=== PATIENT | male | born 1945 | race Caucasian/White ===

== ENCOUNTER 2016-11-10 16:21 | Inpatient (IN) | payer MEDICARE ==
[~2016-11-10] VITALS: Ht 175.3 cm; Wt 134.0 kg
[~2016-11-10 16:21] MED LIST: ATEN50TA7 PO; CITA20TA PO; LOP600 PO; LOVA40TA PO; NIAC500T8 PO; NIAC500T82 PO; TAMS0.4C29 PO
[2016-11-10 16:24] VITALS: BP 125/69; PULSE 97; RESP 13; O2SAT 99
--- NOTE | 2016-11-10 16:31 | ED.REPORT ---
HPI-Extremity Problem Lower Date of Service Nov 10, 2016 ED Provider: Sami Galeas MD A 70 year old male with a history of LLE DVT (secondary to a trauma), hypertension, diabetes mellitus, and kidney disease presents to the ED via EMS from [facility] ED with right lower extremity edema that first began 4 days ago. [facility] ED ultrasound revealed a right popliteal saphenous DVT. He was treated with Heparin en route. The patient endorses recent dyspnea but is often short of breath following exertion. He denies any chest pain or hemoptysis. Patient denies any recent travel or surgeries. Current medication list includes Levothyroxine, statin and insulin. The patient has also been taking an antibiotic for the past week for suspected lower extremity cellulitis. He was previously on Coumadin but has not been anticoagulated for the past few years. Nursing Notes Stated Complaint: RIGHT LEG SWELLING Chief Complaint: General Complaint Nursing Notes Reviewed: Yes Allergies: Coded Allergies: clindamycin (Verified Allergy, Intermediate, 11/10/16) sodium thiosulfate (Verified Allergy, Intermediate, 11/10/16) Scheduled Atenolol-Expunged Drug, Do Not Renew! (Atenolol-Expunged Drug, Do Not Renew!) 50 Mg Tablet 50 MG PO DAILY Citalopram-Expunged Drug, Do Not Renew! (Citalopram-Expunged Drug, Do Not Renew! ) 20 Mg Tablet 40 MG PO DAILY Gemfibrozil-Expunged Drug, Do Not Renew! (Lopid-Expunged Drug, Do Not Renew!) 600 Mg Tablet 600 MG PO BID Lovastatin-Expunged Drug, Do Not Renew! (Lovastatin-Expunged Drug, Do Not Renew! ) 40 Mg Tablet 40 MG PO DAILY NIACIN-Expunged Drug, Do Not Renew! (NIACIN-Expunged Drug, Do Not Renew!) 500 Mg Tablet 500 MG PO HS 3 500 MG TABS Q PM Niacin-Expunged Drug, Do Not Renew! (Niacin-Expunged Drug, Do Not Renew!) 500 Mg Tablet.sa 500 MG PO AM 2 500 MG TABS Q AM Tamsulosin-Expunged Drug, Do Not Renew! (Tamsulosin-Expunged Drug, Do Not Renew! ) 0.4 Mg Cap.sr.24h 0.4 MG PO HS General Time Seen by MD: 16:28 Chief Complaint Other (Right Lower Extremity Edema) Hx Obtained From: Patient Arrived By: Ambulance Onset Occurred: 4 days ago Symptom Duration: Since onset Location: : Leg right Quality: Fullness Severity: Current: Mild Severity: Maximum: Moderate Associated with: Reports: Dyspnea, Swelling, Denies: Chest pain Pertinent Negative: Pt denies other symptoms Recent Healthcare: No recent hospitalization, Recent doctor visit Past Medical History Past Medical History 1. LLE DVT 2. Hypertension 3. Diabetes mellitus 4. Kidney Disease Past Surgical History None reported. Smoking History Never Smoker Social History Other Social History: Good social support, , Local resident Ambulatory Status Independent Review of Systems Musculoskeletal: Reports: Extremity swelling (R leg swelling) Complete sys rev & neg: except as marked. Respiratory: Reports: Dyspnea on exertion, Shortness of breath, Denies: Hemoptysis Cardiovascular: Reports: Edema (Bilateral LE), Denies: Chest pain Physical Exam Initial Vital Signs Vital Signs (First) Date Time Temp Pulse Resp B/P Pulse Ox O2 Delivery O2 Flow Rate FiO2 11/10/16 16:24 36.8 97 13 125/69 99 Room Air Initial VS: Reviewed Head / Eyes: Atraumatic, Normocephalic, PERRL Neck: Supple, Non-tender, Full range of motion Upper Extremities: Vascular intact, Neuro intact, No swelling, No tenderness Neurologic: Alert, Oriented, Nonfocal Psychiatric: Mood/affect normal, Behavior normal, Normal thought content Lower Extremity / Pelvis / MS: Atraumatic, Neurologic intact, Vascular intact Right Leg / Calf: Positive: Erythema present Left Leg / Calf: Positive: Erythema present Ankle / Foot: Atraumatic, Neurologic intact, Vascular intact Right Ankle: Positive: Swelling present... Left Ankle: Positive: Swelling present... General/Constitutional: Awake, Alert, No acute distress, Well appearing, Well developed Respiratory / Chest: Atraumatic, Breath sounds NL, Breath sounds = bilat, No respiratory distress Cardiovascular: Heart rate NL, Regular rhythm, Heart sounds NL, No murmurs Lower Ext Edema: Positive: Bilateral 2+ Skin: Atraumatic, Color NL, Warm, Dry Interpretation & Diagnostics LABS - [facility] Chemistry Na - 135 K - 5.2 Cl - 106 CO2 - 19 BUN - 36 Creat - 2.40 Estimated GFR - 28.5 BUN/Creat Ration - 15.0 Glucose - 236 Ca - 8.7 Total Bilirubin - 0.5 AST - 18 ALT - 24 Alk Phos - 114 B-Natriuretic Peptide - 38.3 Total protein - 6.8 Albumin - 3.7 Globulin - 3.1 Albumin/Globulin Ration - 1.2 Coag PT - 13.0 INR - 1.2 Hematology WBC - 10.2 RBC - 3.53 Hgb - 12.2 Hct - 35.6 MVC - 100.8 MCH - 34.7 MCHC - 34.4 RDW - 13.[address] - 232 Neutrophils - 90.2 Lymphocytes - 2.2 Monocytes - 6.7 Eosinophils - 0.6 Basophils - 0.3 Absolute Neutrophils - 9200 Lab Results Interpretation Result Diagram: 11/10/16 5565 ECG Interpretation ECG Interpretation: Sinus rhythm Rate 98 bpm Q waves in 3 AVR V1 - V2 No previous for comparison Time: 16:43 Interpreted by: ED physician X-Ray Chest Interpretation Chest Xray Interpretation: IMPRESSION: Normal for age, source of current symptoms is not seen. Dictated by: Alber Roberto M.D. on 11/10/2016 at 18:25 Interpretation / Wet Read by: Interpret - Radiologist Re-Eval/Medical Decision Med Decision/Clinical Course 70-year-old male history of DVT presenting with right lower extremity DVT diagnosed at outside hospital earlier today from saphenous to popliteal. Patient started on heparin drip. Interventional cardiology Dr. Garcia consulted who will perform thrombolysis in the morning and he recommends nothing by mouth at midnight, echocardiogram, V/Q scan given patient's renal function. He does have some dyspnea which is chronic and is slightly tachycardic therefore cannot rule out PE though we are treating with heparin drip pending VQ scan and echocardiogram is pending. Labs were performed several hours ago at outside hospital which have been transcribed into the note as above therefore will not repeat at this time. Admitted to hospital. Re-Evaluation/Progress #1: Time of Eval: 16:42 Patient Status: Condition improved Re-Evaluation/Progress Note: Patient is informed of the plan to admit to the hospital. IV heparin drip started. Re-Evaluation/Progress #2: Time of Eval: 17:14 Patient Status: Condition improved Re-Evaluation/Progress Note: All questions about the intended treatment plan are addressed. Patient is comfortable with and understands the treatment plan to meet with Dr. Nascimento Consultation #1: Referral / Consult Name: Joaquin Hinkle MD Consulted With: Surgeon Call Returned at: 16:48 Skidder Loader: Will see patient, Agrees with eval, Agrees with plan Note: Discussed patient condition. Will perform Thrombolysis in the morning. Recommends IV heparin, echocardiogram and VQ scan. Agrees to consult on patient. Consultation #2: Referral / Consult Name: Dipak Jay MD Consulted With: Hospitalist Call Returned at: 17:15 Skidder Loader: Will see patient, Agrees with eval, Agrees with plan, Accepts admit Note: Discussed patient condition. Will accept patient. Counseled Regarding: Diagnosis, Lab results, Need for admission Discharge & Departure Impression: Primary Impression: Deep vein thrombophlebitis of right leg Disposition: ADMITTED TO HOSPITAL Discharge Condition All VS Reviewed: Yes Condition: Stable Referrals: Willem Franklin MD (PCP) Crit Care Except Billable Proc Time Spent: 30-74 minutes (35 minutes) Services Performed: Patient management by me, Time spent at bedside, Reviewing test results, Reviewing imaging, Discussing patient care, Documentation in record, Time with fam/surrogate Scribe Attestation Portions of this note were transcribed by Cj Lozano. I, Dr. Galeas personally performed the history, physical exam and medical decision-making; I reviewed and confirmed the accuracy of the information in the transcribed note. copies to: Willem Franklin MD, Ben M MD Nov 10, 2016 16:31 CJ LOZANO Nov 10, 2016 16:40
[2016-11-10 16:32] VITALS: BP 125/69; PULSE 97; RESP 13; O2SAT 99
[2016-11-10] MEDS ORDERED: Alum-Mag Hydrox-Simeth 30 mL Suspension PO PRN ×2 (17:20)
[2016-11-10] MEDS ORDERED: Ondansetron 2 mg/mL 2 mL Inj IVPUSH PRN (17:20)
[2016-11-10] MEDS ORDERED: Polyethylene Glycol (PEG) 17 Gm Powder PO PRN (17:20)
[2016-11-10 17:24] VITALS: BP 122/59; PULSE 98; RESP 17; O2SAT 99
[2016-11-10] MEDS ORDERED: Heparin 5,000 Unit/mL Inj IVPUSH PRN (17:30)
[2016-11-10] MEDS ORDERED: Heparin 25K Unit/500mL 0.45 NS 25,000 UNIT in IV Premix 1 EACH IV SCH (17:30)
[2016-11-10 18:09] LABS: BASOPHILS % (AUTO) 0.1 % (0-3); MONOCYTES % (AUTO) 8.8 % (4-12); Mean Corpuscular Hemoglobin 33.3 pg (27.0-35.0); Mean Corpuscular Volume 103.5 fL (81-100); Platelet Count 275 bil/L (150-400)
[2016-11-10] MEDS ORDERED: Glucose 40% Oral Gel 15 Gm Tube PO PRN (18:20)
--- NOTE | 2016-11-10 18:27 | DRSVH ---
PROCEDURE: X-RAY CHEST, TWO VIEWS ([id number]) INDICATIONS: dyspnea pending vq scan TECHNIQUE: 2 views of the chest were acquired. COMPARISON: None. FINDINGS: Surgical changes and devices: None. Lungs and pleura: No pleural effusions or pneumothorax. Lungs are clear. Mediastinum: Mediastinal contours are normal. Heart size is normal. Bones and chest wall: No suspicious bony abnormalities. Soft tissues appear unremarkable. IMPRESSION: Normal for age, source of current symptoms is not seen. Dictated by: Alber Roberto M.D. on 11/10/2016 at 18:25 Approved by: Alber Roberto M.D. on 11/10/2016 at 18:25
--- NOTE | 2016-11-10 18:27 | PCM.HPMED ---
Subjective Date of Service Nov 10, 2016 Primary Provider: Admitting Physician: Dipak Jay MD Primary Care Physician: Willem Franklin MD Attending Physician: Dipak Jay MD Chief Complaint: DVT History of Present Illness: Patient is a 70 yo male with pmh of DVTs, PE (s/p IVC filter), Cranial hematoma , GI bleeds who is coming in with right leg swelling and erythema. Patient said he had his first DVT in 1986 when he had a left leg injury and had a cast put in. He had PEs after that episode and was on warfarin for some time. He had recurrent GI bleeds and a cranial hematoma (requiring surgery), resulting in discontinuation of warfarin, and IVC filter was placed. The right leg got swollen and red couple of days ago. He added that he does trip a lot due to instability of his gait. Denies any chest pain, shortness of breath at this time. He said he was recently admitted at another hospital on Monday for hypotension recently and his bp medications were dc'd Allergies Coded Allergies: clindamycin (Verified Allergy, Intermediate, 11/10/16) sodium thiosulfate (Verified Allergy, Intermediate, 11/10/16) Constitutional: No: Chills, Fever, Malaise, Other, Sweats, Weakness Eyes: Denies: Blurred Vision, Conjunctive Inflammation, Double Vision, Eyelid Inflammation, Other, Pain, Pigmentosa, Redness, Retinitis, Vision Changes ENT: Denies: Dental Problems, Dysphagia, Ear Discharge, Ear Pain, Hoarseness, Membranes Dry, Nasal Congestion, Nose Discharge, Nose Pain, Other, Throat Pain, Tinnitus, Ulcers/Sores in Mouth Cardiovascular: Denies: Chest Pain, Edema, Lt Headedness, Orthopnea, Other, Palpitations, Paroxysmal Noc. Dyspnea Respiratory: Denies: Cough, Hemoptysis, Other, Pleuritic Chest Pain, SOB with Exertion, Shortness of Breath, Sputum, Wheezing Gastrointestinal: Denies: Abdominal Pain, Change in Appetite, Constipation, Diarrhea, Heartburn, Hematochezia, Melena, Nausea, Other, Use of Laxatives, Vomiting Genitourinary: Denies: Anuria, Change in Frequency, Dysuria, Hematuria, Incontinence, Nocturia, Other, Retention Musculoskeletal: Reports: Other (as perHPI) Skin: Reports: Other (Erythema around LLE below the knee) Neurological: Denies: Change in Speech, Confusion, Dizziness, Dyskinesia, Hyper Reflexia, Incoordination, Numbness, Other, Seizures, Somnolence, Tremors, Weakness Psychologic: Denies: Agitation, Disorientation, Excitation, Giddiness, Hostile , Insomnia, Instability, Stefany, Nervousness, Night Terrors, Other, Perseveration , Phobia, Sexual Disturbances Endocrine: Denies: Change in Appitite, Diaphoresis, Intolerent to Heat/Cold, Polydipsea, Polyuria PMH DVT PE Cranial hemorrhage (requiring evacuation) DM HTN CKD Surgical History s/p IVC filter Family History non contributory Social History Hx Alcohol Use: No Hx Substance Use: No Hx Tobacco Use: No Smoking Status: Never Smoker Exam Vital Signs Vital Sign - Last Date Time Temp Pulse Resp B/P Pulse Ox O2 Delivery O2 Flow Rate FiO2 11/10/16 17:24 36.7 98 17 122/59 99 Room Air Exam Head / Eyes: Atraumatic, Normocephalic, PERRL Neck: Supple, Non-tender, Full range of motion Upper Extremities: Vascular intact, Neuro intact, No swelling, No tenderness Neurologic: Alert, Oriented, Nonfocal Psychiatric: Mood/affect normal, Behavior normal, Normal thought content Lower Extremity / Pelvis / MS: Atraumatic, Neurologic intact, Vascular intact Right Leg / Calf: Positive: Erythema present Left Leg / Calf: Positive: Erythema present Ankle / Foot: Atraumatic, Neurologic intact, Vascular intact Right Ankle: Positive: Swelling present... Left Ankle: Positive: Swelling present... General/Constitutional: Awake, Alert, No acute distress, Well appearing, Well developed Respiratory / Chest: Atraumatic, Breath sounds NL, Breath sounds = bilat, No respiratory distress Cardiovascular: Heart rate NL, Regular rhythm, Heart sounds NL, No murmurs Lower Ext Edema: Positive: Bilateral 2+ Skin: Atraumatic, Color NL, Warm, Dry Lab and Diagnostics Labs Chemistry Na - 135 K - 5.2 Cl - 106 CO2 - 19 BUN - 36 Creat - 2.40 Estimated GFR - 28.5 BUN/Creat Ration - 15.0 Glucose - 236 Ca - 8.7 Total Bilirubin - 0.5 AST - 18 ALT - 24 Alk Phos - 114 B-Natriuretic Peptide - 38.3 Total protein - 6.8 Albumin - 3.7 Globulin - 3.1 Albumin/Globulin Ration - 1.2 Coag PT - 13.0 INR - 1.2 Result Diagram: 11/10/16 8553 Assessment & Plan Patient is a 70 yo male with pmh of DVTs, PE (s/p IVC filter), Cranial hematoma , GI bleeds who is coming in with right leg swelling and erythema. > DVT - h/o of DVTs, warfarin stopped before due to bleeds, s/p IVC filter - US positive for RLE DVT plan: - started on heparin drip - cardio consulted from ER, NPO after midnight for venous cath > Cellulitis - erythema with swelling, right lower leg - h/o DM plan: - continue bactrim > CKD - baseline ~1.90 - likely 2/2 chronic diabetes plan: -monitor Cr function - avoid nephrotoxins > DM - chronic plan: - on sliding scale - will monitor glucose > HTN - has history of it, however most of the bp meds dc'd due to recent hypotension plan: -monitor bp inpatient - continue atenolol > GI bleeds - h/o of GI bleeds plan: -watch H&H - on famotidine for prophylaxis > Depression/Anxiety - chronic plan - on citalopram > BPH - chronic plan: - on tamsolusin Dispo: I suspect patient will stay > 2 days inpatient due to severity of the disease and complexity that can arise from it. Pain Evaluation: Adequate Pain Control VTE Prophylaxis: Other (on heparin drip ) Time spent 45 mins Dipak Jay MD Nov 10, 2016 18:27
[2016-11-10 18:33] VITALS: BP 121/77; PULSE 98; RESP 22; O2SAT 99
[2016-11-10 18:40] VITALS: PULSE 96
[2016-11-10] MEDS ORDERED: Trimethoprim-Sulfa 160 mg-800 mg Tablet PO SCH (20:30)
[2016-11-10] MEDS: Insulin LISPRO 300 Unit/3 mL Inj SUBQ SCH (22:00)
[2016-11-10 22:29] VITALS: BP 118/73; PULSE 95; RESP 20; O2SAT 98
[2016-11-10] MEDS ORDERED: 0.9% Sodium Chloride 100 ML ONE (23:34)
[2016-11-10] MEDS ORDERED: SULF1TAB35 PO (23:45)
[2016-11-10] MEDS ORDERED: CITA20TA PO (23:45)
[2016-11-10] MEDS ORDERED: GLIP5TAB26 PO (23:45)
[2016-11-11] VITALS (10 sets, daily range): BP systolic 116–131; BP diastolic 71–78; PULSE 80–89; RESP 12–20; O2SAT 96–100
[2016-11-11] MEDS: Trimethoprim-Sulfa 160 mg-800 mg Tablet PO SCH ×3 (00:35→21:09)
[2016-11-11] MEDS ORDERED: LEVO50TA6 PO (00:47)
[2016-11-11] MEDS ORDERED: LOVA40TA PO (00:47)
[2016-11-11] MEDS ORDERED: HYDR-4003 PO (00:47)
[2016-11-11] MEDS ORDERED: INSU100V7 SUBQ ×2 (00:47)
[2016-11-11] MEDS ORDERED: NIAC500T21 PO ×2 (00:47)
[2016-11-11] MEDS: Famotidine Inj 20 MG in IV Premix 1 EACH IV SCH ×2 (01:08→21:09)
[2016-11-11] MEDS ORDERED: ATEN50TA PO (04:09)
[2016-11-11] MEDS ORDERED: TAMS0.4C98 PO (04:09)
[2016-11-11 06:31] LABS: BASOPHILS % (AUTO) 0.4 % (0-3); EOSINOPHILS % (AUTO) 2.7 % (0-5); MONOCYTES % (AUTO) 11.3 % (4-12); Mean Corpuscular Hemoglobin 33.3 pg (27.0-35.0); Mean Corpuscular Volume 102.8 fL (81-100); NEUTROPHILS % (AUTO) 76.8 % (40-74); Platelet Count 253 bil/L (150-400)
[2016-11-11 07:10] LABS: INR 1.02 ratio
[2016-11-11] MEDS ORDERED: Heparin 1,000 Units/500 mL NS Premix IV ONE (07:53)
[2016-11-11] MEDS ORDERED: Heparin 1,000 Unit/mL 10 mL Inj ONE (07:53)
[2016-11-11] MEDS ORDERED: Heparin 10,000 Unit/1,000 mL NS Premix IV ONE (07:58)
[2016-11-11] MEDS: Insulin LISPRO 300 Unit/3 mL Inj SUBQ SCH ×4 (08:00→21:29)
[2016-11-11 08:30] LABS: ERYTHROCYTE SEDIMENTATION RATE 56 mm/hr (0-30)
[2016-11-11] MEDS ORDERED: Niacin SR 500 mg ER12 Tablet PO SCH ×2 (08:30)
[2016-11-11] MEDS ORDERED: Lactated Ringer's 500 ML IV PRN (09:25)
[2016-11-11] MEDS ORDERED: Lactated Ringer's 1,000 ML IV SCH (09:25)
[2016-11-11] MEDS ORDERED: fentaNYL-PF 50 mCg/mL 2 mL Inj IVPUSH PRN (09:25)
[2016-11-11] MEDS ORDERED: Labetalol 5 mg/mL 4 mL Inj IV PRN (09:25)
[2016-11-11] MEDS ORDERED: Ondansetron 2 mg/mL 2 mL Inj IVPUSH PRN (09:25)
[2016-11-11] MEDS ORDERED: HYDROmorphone 1 mg/mL Inj IVPUSH PRN (09:25)
[2016-11-11] MEDS ORDERED: hydrALAZINE 20 mg/mL Inj IVPUSH PRN (09:25)
[2016-11-11] MEDS ORDERED: Atropine 0.4 mg/mL Inj IVPUSH PRN (09:25)
[2016-11-11] MEDS ORDERED: MetoCLOpramide 5 mg/mL 2 mL Inj IVPUSH PRN (09:25)
[2016-11-11] MEDS ORDERED: Dexamethasone 4 mg/mL Inj IVPUSH PRN (09:25)
[2016-11-11] MEDS ORDERED: Phenylephrine 10,000 mCg/mL Inj IVPUSH PRN (09:25)
[2016-11-11] MEDS ORDERED: EPHEDrine Sulfate 50 mg/mL Inj IVPUSH PRN (09:25)
--- NOTE | 2016-11-11 09:25 | PCM.HPANE ---
Patient Data Date of Service: Nov 11, 2016 Surgeon Admitting Provider:Dipak Jay MD Attending Provider:Dipak Jay MD Primary Care Physician:Willem Franklin MD Other Provider: Reason for Visit DVT Ht/WT & BMI Height (Feet): 5 Height (Inches): 9.00 Weight (Kilograms): 126.900 Body Mass Index 41.44 Allergies Coded Allergies: clindamycin (Verified Allergy, Intermediate, 11/10/16) sodium thiosulfate (Verified Allergy, Intermediate, 11/10/16) Past Anesthesia History Anesthesia History: Denies:: Abnormal Airway, Difficult Intubation, Fam Anesthesia Reaction, Fam Malignant Hypertherm, Malignant Hyperthermia Diabetes History Hx Diabetes?: Yes Current Bedside Blood Glucose: 73 MRSA MRSA: No Medications Hypertension Medication: Yes Home Meds Incl Beta Shelley: Yes Date Beta Shelley Taken: Nov 10, 2016 Reported Medications Tamsulosin (Flomax)0.4 Mg Capsule0.4 Mg PO HS Ref 0 11/11/16 Atenolol 50 Mg [id number] Mg PO DAILY #30 TABLET Ref 0 11/11/16 Niacinamide (Niacin)500 Mg Tablet1,500 Mg PO HS 11/11/16 Niacinamide (Niacin)500 Mg Tablet1,000 Mg PO MORNING 11/11/16 Levothyroxine 50 Mcg [id number] Mcg PO DAILY Ref 0 11/11/16 Insulin Glargine (Lantus U100 Insulin Vial)100 Unit/Ml Vial35 Unit SUBQ QPM #1 VIAL Ref 0 11/11/16 Insulin Glargine (Lantus U100 Insulin Vial)100 Unit/Ml Vial45 Unit SUBQ MORNING #1 VIAL Ref 0 11/11/16 Hydrocodone-Acetaminophen 5-325 mg 1 Each Tablet1-2 Tablet PO q6hr PRN For Pain Ref 0 11/11/16 Lovastatin 40 Mg Cmqomd28 Mg PO BID #30 TABLET Ref 0 11/11/16 Glipizide ER 5 Mg Tab.er.2410 Mg PO BIDWM 11/10/16 Citalopram Hydrobromide (Celexa)20 Mg Drhvnu10 Mg PO QPM Ref 0 11/10/16 Sulfamethoxazole/Trimeth 800-160 mg (Bactrim DS 800-160 mg)1 Each Tablet1 Tablet PO BID Ref 0 11/10/16 Discontinued Reported Medications Tamsulosin-Expunged Drug, Do Not Renew! 0.4 Mg Cap.sr.24h0.4 Mg PO HS 06/30/11 Gemfibrozil-Expunged Drug, Do Not Renew! (Lopid-Expunged Drug, Do Not Renew!) 600 Mg [id number] Mg PO BID 06/30/11 Atenolol-Expunged Drug, Do Not Renew! 50 Mg Caqusr71 Mg PO DAILY 06/30/11 History History of ENT Problems?: No HEENT History: Denies:: Abnormal Airway Cataracts Difficult Intubation Dysphagia Glaucoma Hearing Problem Sinus Problem Denture Type: None Teeth Condition: Broken Teeth Missing Teeth Hx of Heart Problems?: Yes Cardiovascular History: Positive for:: Heart Murmur ( A CHILD) Hypertension Denies:: Atrial Fibrillation Cardiac Surgery Chest Pain Congestive Heart Failure Edema Irregular Heartbeat Pacemaker Thrombophlebitis (DVT) Valvular Heart Disease Hx of Respiratory Problem?: Yes Respiratory History: Positive for:: Dyspnea Hemoptysis Use of C-PAP Machine Denies:: Asthma COPD Chest Surgery Cough Emphysema Pneumonia Tuberculosis Other Resp Pertinent History: Hx PE, IVC filter in place. Current DVT Hx Neurologic Problems?: Yes Neurological History: Positive for:: Dizziness Denies:: Alzheimer's Disease CVA Dementia Headaches Parkinson's Disease Seizures Other Neurological Pertinent: Hx of brain bleed on anticoagulation Hx of GI Problems?: No Hx of Problems?: Yes (kidney insufficiency) Genitourinary History: Denies:: HX of Hemodialysis Kidney Stones Urinary Tract Infection HX of Peritoneal Dialysis: No Male Hx: Denies:: Prostate Problems Scrotal Mass Testicular Surgery Hx Musculoskeletal Problems?: Yes Musculoskeletal History: Positive for:: Back Injury (CORTISONE INJECTIONS IN BACK ) Denies:: Joint Replacement Musculoskeletal Trauma Hx of Psycho/Social Problems?: Yes Psycho Social History: Positive for:: Anxiety Hx Depression Denies:: Bipolar Disorder Suicide Attempt Hx Surgeries?: Yes (POLYPS REMOVED FROM THROAT, ARMPIT CYST DRAINED) Hx Any Other Health Problems?: Yes Other History: Positive for:: Hospitalization (DVT LEFT LEG) Denies:: Cancer Thyroid Disease History Blood Transfusions: Positive for:: Accept Blood Products? Blood Transfusions Denies:: Blood Transfuse Reaction Hx Diabetes: YesBedside Blood Glucose: 73 Hx Alcohol Use: NoHx Substance Use: No Smoking Status: Never Smoker Have You Smoked inLast 12 mo: No Stop/Bang Treated for Sleep Apnea?: Yes Do You Have a CPAP Machine?: Yes S-Snoring: Do You Snore Loudly: No T-Tired: feel tired, fatigued: No O-Obsered: Observed not breath: Yes P-Blood Pressure: treated: No B- Body Mass Index > 35 kg/m2: Yes A- Age over 50: Yes N- Neck Large Circumference: Yes G- Gender Male: Yes ANNA Total Score: 5 ANNA Risk Assessment: High Risk, =/>3 Yes ANNA Category 2: Yes Risk Assessment Category Category 1A: Patient has history of documented sleep apnea, and HAS NOT received any narcotic, sedative or anesthesia administration during this stay. Category 1B: Patient has history of documented sleep apnea, and HAS received any narcotic , sedative or anesthesia administration during this stay Category 2: Patient has SUSPECTED Obstructive Sleep Apnea, and HAS received any narcotic , sedative or anesthesia administration during this stay. Category 3: Patient has SUSPECTED Obstructive Sleep Apnea and HAS NOT received narcotic, sedative or anesthesia administration during this stay. Category 4: Outpatient in Procedural Areas with known sleep apnea or who screen positive for High Risk via the STOP/BANG questionnaire. Exam Exam Vital Signs Vital Signs Date Time Temp Pulse Resp B/P Pulse Ox O2 Delivery O2 Flow Rate FiO2 11/11/16 09:13 86 11/11/16 08:34 36.9 89 20 122/74 97 Room Air 11/11/16 06:04 36.9 86 18 118/78 98 CPAP 11/11/16 05:14 80 General Appearance: Alert, Oriented X3, Cooperative HEENT/AIRWAY: MP 2, Neck Movement (OK, mckinnon), Mouth Opening (Wide) Lungs: Clear to Auscultation, Normal Air Movement Heart: Regular Rate/Rhythm, Normal S1, Normal S2 Meds/Labs/Diagnostics Admission Meds Current Medications Atorvastatin Calcium 10 mg 10 mg HS PO Last administered on 11/11/16 00:35; Start 11/10/16 at 21:00 Famotidine/Sodium Chloride/Premix (Pepcid Inj/IV Premix) 50 ml @ 100 mls/hr Q24H IV Last administered on 11/11/16 01:08; Start 11/10/16 at 20:30 Trimethoprim/ Sulfamethoxazole 0.5 tablet 0.5 tablet BID PO Last administered on 11/11/16 00:35; Start 11/10/16 at 20:30 Sodium Chloride (Normal Saline) 100 ml @ ud STK-MED ONCE .ROUTE Last administered on 11/11/16 01:08; Start 11/10/16 at 23:34; Stop 11/10/16 at 23:36 ; Status DC Bedside Blood Glucose: 73 Labs Test 11/10/16 17:55 11/11/16 06:15 Hemoglobin A1c 6.3% (4.8-5.6) Hold Tovar Top Tube Received (Received) White Blood Count 8.0th/mm3 (3.8-10.1) Red Blood Count 3.57mil/mm3 (4.40-5.80) Hemoglobin 11.9g/dL (13.8-17.2) Hematocrit 36.7% (41.0-50.0) Mean Corpuscular Volume 102.8fL (81-100) Mean Corpuscular Hemoglobin 33.3pg (27.0-35.0) Mean Corpuscular Hemoglobin Concent 32.4% (32.0-37.0) Red Cell Distribution Width 13.8% (12.3-15.4) Platelet Count 253bil/L (150-400) Neutrophils (%) (Auto) 76.8% (40-74) Lymphocytes (%) (Auto) 7.7% (14-46) Monocytes (%) (Auto) 11.3% (4-12) Eosinophils (%) (Auto) 2.7% (0-5) Basophils (%) (Auto) 0.4% (0-3) Erythrocyte Sedimentation Rate 56mm/hr (0-30) Prothrombin Time 10.9sec (8.1-12.5) Prothromb Time International Ratio 1.02ratio Activated Partial Thromboplast Time 49.3sec (22.8-33.0) Sodium Level 135mEq/L (134-144) Potassium Level 4.9mEq/L (3.5-5.2) Chloride Level 101mEq/L (97-108) Carbon Dioxide Level 16mmol/L (18-29) Blood Urea Nitrogen 41mg/dL (8-27) Creatinine 2.48mg/dL (0.76-1.27) Estimat Glomerular Filtration Rate 27mL/min (>59) Glucose Level 93mg/dL (60-99) Calcium Level 8.5mg/dL (8.5-10.1) Total Bilirubin 0.3mg/dL (0.0-1.2) Aspartate Amino Transf (AST/SGOT) 14U/L (0-50) Alanine Aminotransferase (ALT/SGPT) 8U/L (0-44) Alkaline Phosphatase 106U/L (25-160) Total Protein 6.0g/dL (6.4-8.4) Albumin 3.6g/dL (3.4-5.0) Procalcitonin 0.19ng/mL (0.00-0.08) Plan Impression Patient chart reviewed, patient interviewed and anesthestic plan with risks, benefits, and alternatives discussed, and informed consent obtained. NPO per Anesth. Guidelines: Yes ASA Physical Status: ASA3 Severe Disease Anesthetic Plan: GA (possible backup if necessary), MAC (primary p[cierra) Bene/Risks/Altern/Consents: Yes HP Complete Prior to Induction: Yes Monty Shaw MD Nov 11, 2016 09:25
[2016-11-11] MEDS ORDERED: SODIUM CHLORIDE 0.9% IV ONE (10:30)
[2016-11-11] MEDS ORDERED: ALTEPLASE IV ONE (10:30)
[2016-11-11] MEDS ORDERED: Alteplase (Cathflo) Inj 10 MG in 0.9% Sodium Chloride 240 ML IV ONE (10:30)
[2016-11-11] MEDS ORDERED: Heparin 25K Unit/500mL 0.45 NS 25,000 UNIT in IV Premix 1 EACH IV SCH ×2 (11:05→21:15)
[2016-11-11] MEDS ORDERED: LORazepam 0.5 mg Tablet PO PRN (11:10)
[2016-11-11] MEDS: HYDROmorphone 1 mg/mL Inj IV PRN (12:10)
--- NOTE | 2016-11-11 12:13 | PCM.ANEP1 ---
Post Anesthesia PACU Phase 1 Assessment Date of Service: Nov 11, 2016 Vital Signs Vital Signs Date Time Temp Pulse Resp B/P Pulse Ox O2 Delivery O2 Flow Rate FiO2 11/11/16 09:13 86 11/11/16 08:34 36.9 89 20 122/74 97 Room Air 11/11/16 08:30 CPAP/BIPAP 11/11/16 06:04 36.9 86 18 118/78 98 CPAP 11/11/16 05:14 80 Anesthetic Administered: MAC Level of Alertness: Awake, talking BOWEN's with Equal Strength: Yes Pain: Yes Nausea or Vomiting: No CV Function & Hydration Stable: Yes Airway Device: Oxygen Delivery: Room Air Lungs: Normal Air Movement Dermatome Level: Full Sensation PACU Phase 2 Assessment Complications: No Follow up Care: N/A Patient Instructions Provided: N/A Monty Shaw MD Nov 11, 2016 12:13
--- NOTE | 2016-11-11 13:08 | DI96 ---
[address] [address] PERIPHERAL CATHETERIZATION/INTERVENTION REPORT PATIENT: FLORA OLEA : 1945 MR#: [id number] ADMIT: 11/10/2016 JOB ID: [id number] DATE OF PROCEDURE: 11/11/2016 PATIENT PROFILE: The patient is a 70-year-old male who presented with acute deep venous thrombosis of the right lower extremity. PROCEDURE: 1. Venous access from the right popliteal vein under ultrasound guidance. 2. Right common femoral venogram. 3. Right common iliac venogram. 4. Catheter-directed thrombolysis to the right femoral vein, right common femoral vein and right external iliac vein. COMPLICATION: None. METHOD: The patient was put in the prone position. Conscious sedation was provided by Dr. Sahw, anesthesiologist. The right popliteal fossa was prepped and draped under standard sterile technique. Venous access was obtained by using micropuncture needle under ultrasound guidance. The 6-[place] sheath was then put in place. A [place] Advantage wire was placed inside the right femoral vein. A Navicross catheter was then inserted. The tip of the catheter was placed at the right common femoral vein. Venogram showed occlusive thrombus in the right common femoral vein. The Navicross catheter was then advanced further into the right common iliac vein. The right common iliac venogram was performed at this point and again demonstrated occlusive thrombus. The Navicross catheter was then exchanged to an EKOS catheter with a treatment length of 50 cm. This was then secured in situ. tPA was then initiated at 1.2 mg/hour. It will be infused for 10 hours. The patient was then transferred to intensive care unit in stable condition. TOTAL CONTRAST USED: 10 ml FLUOROSCOPY TIME: 2.4 minutes. RESULTS: 1. Occlusive thrombus in the right common iliac vein, right external iliac vein, right common femoral vein and right femoral vein. 2. Successful EKOS catheter placement. 3. Catheter-directed thrombolysis to the right external iliac vein, right common femoral vein and right femoral vein.initiated. MTDD
--- NOTE | 2016-11-11 17:32 | PCM.PNMED ---
Subjective Date of Service Nov 11, 2016 Subjective Patient seen and examined. Post procedure. Vitals noted. Exam Vital Signs Vital Sign - Last Date Time Temp Pulse Resp B/P Pulse Ox O2 Delivery O2 Flow Rate FiO2 11/11/16 16:30 36.9 80 20 131/72 97 Room Air Exam Right Leg / Calf: Positive: Erythema present Left Leg / Calf: Positive: Erythema present Ankle / Foot: Atraumatic, Neurologic intact, Vascular intact Right Ankle: Positive: Swelling present... Left Ankle: Positive: Swelling present... General/Constitutional: Awake, Alert, No acute distress, Well appearing, Well developed Respiratory / Chest: Atraumatic, Breath sounds NL, Breath sounds = bilat, No respiratory distress Cardiovascular: Heart rate NL, Regular rhythm, Heart sounds NL, No murmurs Lower Ext Edema: Positive: Bilateral 2+ Skin: Atraumatic, Color NL, Warm, Dry Lab and Diagnostics Result Diagram: 11/11/16 1221 11/11/16 0615 Assessment & Plan Patient is a 70 yo male with pmh of DVTs, PE (s/p IVC filter), Cranial hematoma , GI bleeds who is coming in with right leg swelling and erythema. > DVT - h/o of DVTs, warfarin stopped before due to bleeds, s/p IVC filter - US positive for RLE DVT - had cath today. plan: - on heparin drip - cathetar directed thrombolysis initiated - cardio on board > Cellulitis - erythema with swelling, right lower leg - h/o DM plan: - continue bactrim > CKD - baseline ~1.90 - likely 2/2 chronic diabetes plan: -monitor Cr function - avoid nephrotoxins > DM - chronic plan: - on sliding scale - will monitor glucose > HTN - has history of it, however most of the bp meds dc'd due to recent hypotension plan: -monitor bp inpatient - continue atenolol > GI bleeds - h/o of GI bleeds plan: -watch H&H - on famotidine for prophylaxis > Depression/Anxiety - chronic plan - on citalopram > BPH - chronic plan: - on tamsolusin Dispo: I suspect patient will stay > 2 days inpatient due to severity of the disease and complexity that can arise from it. VTE Prophylaxis: Other (on heparin drip ) VTE Mechanical Devices: Venous Foot Pump Time spent 35 mins Dipak Jay MD Nov 11, 2016 17:32
[2016-11-11] MEDS ORDERED: 0.9% Sodium Chloride 500 ML IV ONE (19:10)
[2016-11-11] MEDS ORDERED: Heparin 5,000 Unit/mL Inj IVPUSH PRN (21:15)
[2016-11-11 22:42] LABS: APPEARANCE,URINE CLOUDY (CLEAR,HAZY); COLOR,URINE YELLOW (YELLOW); OCCULT BLOOD,URINE NEGATIVE (NEGATIVE); PH,URINE 5.5 (5.0-8.0); UROBILINOGEN,URINE NORMAL (NORMAL)
[2016-11-12] VITALS (7 sets, daily range): BP systolic 106–140; BP diastolic 67–87; PULSE 82–95; RESP 15–20; O2SAT 97–99
[2016-11-12 05:53] LABS: BASOPHILS % (AUTO) 0.3 % (0-3); EOSINOPHILS % (AUTO) 1.6 % (0-5); MONOCYTES % (AUTO) 9.7 % (4-12); Mean Corpuscular Hemoglobin 33.8 pg (27.0-35.0); Mean Corpuscular Volume 102.4 fL (81-100); NEUTROPHILS % (AUTO) 81.2 % (40-74); Platelet Count 207 bil/L (150-400)
[2016-11-12] MEDS: Insulin LISPRO 300 Unit/3 mL Inj SUBQ SCH ×4 (08:00→20:55)
[2016-11-12] MEDS: Trimethoprim-Sulfa 160 mg-800 mg Tablet PO SCH (10:02)
--- NOTE | 2016-11-12 12:28 | PCM.PNMED ---
Subjective Date of Service Nov 12, 2016 Subjective Patient is a 70 yo male with pmh of DVTs, PE (s/p IVC filter), Cranial hematoma , GI bleeds who is coming in with right leg swelling and erythema. Nursing reports no acute events overnight. Patient seen and examined. Denies any CP, SOB, ABD pain, N/V/D. Notes RLE swelling and pain. Patient is making good urine output through palmer cath. Has had a bowel movement in the last 24 hours. ROS reviewed and is otherwise negative unless noted above. Exam Vital Signs Vital Sign - Last Date Time Temp Pulse Resp B/P Pulse Ox O2 Delivery O2 Flow Rate FiO2 11/12/16 11:56 37.1 82 19 116/68 99 Room Air Intake and Output 11/11/16 11/11/16 11/12/16 Cumulative From/Thru 15:00 23:00 07:00 11/10/16 16:24 - 11/12/16 06:17 Intake Total 1172 ml 1182 ml 1491 ml 3845 ml Output Total 600 ml 1150 ml 1750 ml Balance 572 ml 1182 ml 341 ml 2095 ml Intake Oral 686 ml 800 ml 1486 ml IV Total 486 ml 1182 ml 691 ml 2359 ml Output Urine Total 600 ml 1150 ml 1750 ml # Bowel Movements 0 0 Exam Constitutional: Awake, alert and oriented x3. No acute distress. Morbid obesity. Head: Normocephalic and atraumatic Eyes: EOMI, PERRLA. No scleral icterus Heart: regular rate and rhythm. No murmurs. 3+ pitting edema in the RLE up to the knee. 2/4 pedal pulses bilaterally Lungs: clear to auscultation bilaterally, no wheeze, rales, or rhonchi. ABD: protubrant, soft, nontender, bowel sounds present throughout Musculoskeletal: moves all four extremities appropriately. Skin: Chronic venostasis in bilateral LE. Tense edema and swelling as noted above. Warm, dry. Neuro: CN II-XII intact. no focal deficits. Psych: appropriate mood and affect. IVs and Medications Medications Reviewed: Medications were reviewed in detail Medications High Risk IV Medications: Heparin Lab and Diagnostics Item Value Date Time Red Blood Count 3.31 mil/mm3 L 11/12/16 0545 Mean Corpuscular Volume 102.4 fL H 11/12/16 0545 Mean Corpuscular Hemoglobin 33.8 pg 11/12/16 0545 Mean Corpuscular Hemoglobin Concent 33.0 % 11/12/16 05 Red Cell Distribution Width 13.8 % 11/12/16 0545 Platelet Count 207 betito/L 11/12/16 0545 Neutrophils (%) (Auto) 81.2 % H 11/12/16 0545 Lymphocytes (%) (Auto) 6.3 % L 11/12/16 0545 Monocytes (%) (Auto) 9.7 % 11/12/16 0545 Eosinophils (%) (Auto) 1.6 % 11/12/16 0545 Basophils (%) (Auto) 0.3 % 11/12/16 0545 Estimat Glomerular Filtration Rate 32 mL/min 11/12/16 0640 Calcium Level 8.1 mg/dL L 11/12/16 0640 Activated Partial Thromboplast Time 45.4 sec H 11/12/16 1037 Result Diagram: 11/12/16 0545 11/12/16 0640 Microbiology MRSA negative Urine Culture negative. X-Rays, CTs and MRIs PROCEDURE: X-RAY CHEST, TWO VIEWS IMPRESSION: Normal for age, source of current symptoms is not seen. Dictated by: Alber Roberto M.D. on 11/10/2016 at 18:25 12-lead ECG Sinus rhythm Assessment & Plan Patient is a 70 yo male with pmh of DVTs, PE (s/p IVC filter), Cranial hematoma , GI bleeds who is coming in with right leg swelling and erythema. DVT, Present on Admission, Active, Ongoing - h/o of DVTs, warfarin stopped before due to bleeds, s/p IVC filter, US positive for RLE DVT -had cath 11/12 -on heparin drip at DVT protocol -cathetar directed thrombolysis initiated -cardio on board will take back to OR on 11/14. -NPO after midnight starting 11/13 -Downgrade from CCU to PCC w/ tele Cellulitis vs DVT, Present on admission - erythema with swelling, right lower leg - discontinue bactrim as patient does not have an elevated WBC, has a mildly elevated procalcitonin of 0.19 which does not clearly identify a bacterial infection, and has a known DVT that we are treating for. -Observe over the next 24 hours and will reassess after procedure on 11/14. CKD, acute, Present on admission - baseline ~1.90 -monitor Cr function - avoid nephrotoxins DM Type II requiring insulin, Chronic, Present on Admission, Stable - on sliding scale, will adjust according to daily needs HTN, Chronic, Present on Admission, Stable -monitor bp inpatient - continue atenolol 50mg PO H/o GI bleeds, Chronic, Stable. -watch H&H - on famotidine for prophylaxis Depression/Anxiety, chronic - on citalopram BPH, Chronic - on tamsolusin Obesity -BMI 41.3 -Diabetic diet with constant carb Disposition: Patient is being anticoagulated for a RLE DVT and has been treated in the culture media laboratory assistant 11/12. patient will go back to culture media laboratory assistant on 11/14 for continued interventional therapy. Due to the complexity of the case and continue need for inpatient care, the length of stay is uncertain at this time. VTE Prophylaxis: Other (on heparin drip ) VTE Mechanical Devices: Venous Foot Pump Attending Statement The patient was seen and examined together with Dr. Christine on 11/12/16 and I have added additional information to the note above. Justo Christine DO Nov 12, 2016 12:28 Sheryl Crews DO Nov 12, 2016 20:13 Dispo: I suspect patient will stay > 2 days inpatient due to severity of the disease and complexity that can arise from it. VTE Prophylaxis: Other (on heparin drip ) VTE Mechanical Devices: Venous Foot Pump Justo Christine DO Nov 12, 2016 12:28 Dispo: I suspect patient will stay > 2 days inpatient due to severity of the disease and complexity that can arise from it. VTE Prophylaxis: Other (on heparin drip ) VTE Mechanical Devices: Venous Foot Pump Justo Christine DO Nov 12, 2016 12:28
[2016-11-12] MEDS: Heparin 25K Unit/500mL 0.45 NS 25,000 UNIT in IV Premix 1 EACH IV SCH (13:14)
[2016-11-12] MEDS ORDERED: [UNRECOGNIZED DRUG - OTHER] IVPUSH PRN (13:15)
[2016-11-12] MEDS ORDERED: Heparin 25K Unit/500mL 0.45 NS 25,000 UNIT in IV Premix 1 EACH IV SCH (14:00)
[2016-11-12] MEDS ORDERED: Heparin 5,000 Unit/mL Inj IVPUSH ONE (14:00)
[2016-11-12] MEDS: Famotidine Inj 20 MG in IV Premix 1 EACH IV SCH (20:57)
[2016-11-12] MEDS ORDERED: Propofol 10 mg/mL 20 mL Inj ONE (22:10)
[2016-11-13] VITALS (9 sets, daily range): BP systolic 105–145; BP diastolic 69–78; PULSE 66–87; RESP 16–20; O2SAT 96–98
[2016-11-13] MEDS: Heparin 25K Unit/500mL 0.45 NS 25,000 UNIT in IV Premix 1 EACH IV SCH ×2 (03:25→17:28)
[2016-11-13] MEDS: Insulin LISPRO 300 Unit/3 mL Inj SUBQ SCH ×4 (08:00→20:12)
[2016-11-13] MEDS: HYDROmorphone 1 mg/mL Inj IV PRN (13:00)
--- NOTE | 2016-11-13 13:25 | PCM.PNMED ---
Subjective Date of Service Nov 13, 2016 Subjective Patient is a 70 yo male with PMHx of DVTs, PE (s/p IVC filter), Cranial hematoma , GI bleeds who is coming in with right leg swelling and erythema. Today the patient is quite concerned that his afflicted left leg appears more red, hot, and swollen. Otherwise he states that he feels much improved compared to admission. No significant overnight events Comprehensive ROS negative except as listed above. Exam Vital Signs Vital Sign - Last Date Time Temp Pulse Resp B/P Pulse Ox O2 Delivery O2 Flow Rate FiO2 11/13/16 13:03 37.3 66 18 105/72 96 Room Air Intake and Output 11/12/16 11/12/16 11/13/16 Cumulative From/Thru 15:00 23:00 07:00 11/10/16 16:24 - 11/12/16 16:49 Intake Total 389 ml 4234 ml Output Total 700 ml 2450 ml Balance -311 ml 1784 ml Intake Oral 200 ml 1686 ml IV Total 189 ml 2548 ml Output Urine Total 700 ml 2450 ml # Bowel Movements 0 Exam Gen: A/O x3 pleasant cooperative elderly obese gentleman in NAD Neck: Large caliber neck, no JVD, full ROM HEENT: PERRL, EOMI, no scleral icterus CV: RRR, 2/6 systolic murmur, no rubs or gallops Resp: Diffuse mild wheezing, no rales or rhonchi Abd: Obses, soft, no rebound guarding or tenderness Extr: R LE with significant swelling and erythema up to the knee, skin appears shiny without focal area of purulence or sharply demarcated borders Neuro: CN 2-12 grossly intact, no focal neurologic deficit Psych: pleasant and appropriate mood and affect. IVs and Medications Medications Reviewed: Medications were reviewed in detail Lab and Diagnostics Result Diagram: 11/13/16 1020 11/12/16 0640 Microbiology MRSA negative Urine Culture negative. X-Rays, CTs and MRIs PROCEDURE: X-RAY CHEST, TWO VIEWS IMPRESSION: Normal for age, source of current symptoms is not seen. Dictated by: Alber Roberto M.D. on 11/10/2016 at 18:25 Assessment & Plan Patient is a 70 yo male with pmh of DVTs, PE (s/p IVC filter), Cranial hematoma , GI bleeds who is coming in with right leg swelling and erythema. DVT, Present on Admission, Active, Ongoing - h/o of DVTs, warfarin stopped before due to bleeds, s/p IVC filter, US positive for RLE DVT -had EKOS on 11/12 -on heparin drip at DVT protocol -catheter directed thrombolysis initiated -cardio on board will take back to OR on 11/14. -NPO after midnight starting 11/13 Cellulitis vs DVT, Present on admission - erythema with swelling, right lower leg -Will cover with Zosyn, appearance and history suggestive of Strep cellulitis -Observe over the next 24 hours and will reassess after procedure on 11/14. CKD, acute, Present on admission - baseline ~1.90 -monitor Cr function - avoid nephrotoxins DM Type II requiring insulin, Chronic, Present on Admission, Stable - Thus far patient has been normoglycemic, will observe closely and begin long acting coverage if necessary - on sliding scale, will adjust according to daily needs HTN, Chronic, Present on Admission, Stable -monitor bp inpatient - continue atenolol 50mg PO H/o GI bleeds, Chronic, Stable. - Continue to monitor H&H - on famotidine for prophylaxis Depression/Anxiety, chronic - on citalopram BPH, Chronic - on tamsolusin Obesity -BMI 41.3 -Diabetic diet with constant carb Disposition: Patient is being anticoagulated for a RLE DVT and has been treated with EKOS in the labeling strategist 11/12. patient will go back to labeling strategist on 11/14 for continued interventional therapy. Due to the complexity of the case and continue need for inpatient care, the length of stay is uncertain at this time. Pain Evaluation: Adequate Pain Control GI Prophylaxis: H2 ron VTE Prophylaxis: Other (on heparin drip ) VTE Mechanical Devices: Venous Foot Pump Resuscitation Status: CPR: Attempt Resuscitation Attending Statement The patient was seen and examined together with Dr. Hoffmann on 11/13/16 and I have added additional information to the note above. Monty Hoffmann DO Nov 13, 2016 13:25 Sheryl Crews DO Nov 13, 2016 16:06
[2016-11-13] MEDS ORDERED: Piperacillin-Tazo 3.375 Gm Inj 3.375 GM in Dextrose 5% Minibag Plus 50 ML IV ONE (13:45)
[2016-11-13] MEDS ORDERED: Piperacillin-Tazo 3.375 Gm Inj 3.375 GM in Dextrose 5% Minibag Plus 50 ML IV SCH (16:00)
[2016-11-13] MEDS: Famotidine Inj 20 MG in IV Premix 1 EACH IV SCH (20:02)
[2016-11-14] VITALS (12 sets, daily range): BP systolic 104–136; BP diastolic 66–80; PULSE 57–78; RESP 14–21; O2SAT 97–100
[2016-11-14 03:27] LABS: Mean Corpuscular Hemoglobin 33.1 pg (27.0-35.0); Platelet Count 241 bil/L (150-400)
[2016-11-14 03:47] LABS: BASOPHILS % (AUTO) 1 % (0-3); EOSINOPHILS % (AUTO) 2 % (0-5); MONOCYTES % (AUTO) 6 % (4-12); NEUTROPHILS % (AUTO) 77 % (40-74)
[2016-11-14 04:02] LABS: Magnesium 2.1 mg/dL (1.6-2.6); Phosphorus 3.4 mg/dL (2.5-4.9)
[2016-11-14] MEDS: Piperacillin-Tazo 3.375 Gm Inj 3.375 GM in Dextrose 5% Minibag Plus 50 ML IV SCH ×3 (04:07→21:54)
[2016-11-14] MEDS: Insulin LISPRO 300 Unit/3 mL Inj SUBQ SCH ×4 (09:44→22:00)
[2016-11-14] MEDS ORDERED: Heparin 1,000 Units/500 mL NS Premix IV ONE ×2 (10:01→10:24)
[2016-11-14] MEDS ORDERED: 0.9% Sodium Chloride 500 ML ONE (10:24)
[2016-11-14] MEDS ORDERED: Heparin 10,000 Unit/1,000 mL NS Premix IV ONE (10:24)
[2016-11-14] MEDS ORDERED: Heparin 1,000 Unit/mL 10 mL Inj ONE ×2 (10:57)
[2016-11-14] MEDS: Alteplase (Cathflo) Inj 12 MG in 0.9% Sodium Chloride 250 ML IV SCH ×2 (11:30→21:59)
[2016-11-14] MEDS ORDERED: Heparin 25K Unit/500mL 0.45 NS 25,000 UNIT in IV Premix 1 EACH IV SCH (11:50)
[2016-11-14] MEDS ORDERED: LORazepam 0.5 mg Tablet PO PRN (11:50)
[2016-11-14] MEDS ORDERED: HYDROmorphone 1 mg/mL Inj IV PRN (11:50)
--- NOTE | 2016-11-14 16:17 | PCM.PNMED ---
Subjective Date of Service Nov 14, 2016 Subjective Patient is a 70 yo male with PMHx of DVTs, PE (s/p IVC filter), Cranial hematoma , GI bleeds who is coming in with right leg swelling and erythema. Nursing reports no acute events overnight. Pt NPO for morning laborer pie bakery procedure. Patient seen and examined. Denies any CP, SOB, ABD pain, N/V/D, or headache. Pt has had little urine output in the last 24 hours. Has not had a bowel movement in the last 24 hours. ROS reviewed and is otherwise negative unless noted above. Exam Vital Signs Vital Sign - Last Date Time Temp Pulse Resp B/P Pulse Ox O2 Delivery O2 Flow Rate FiO2 11/14/16 15:00 59 19 129/66 11/14/16 12:00 36.9 100 Room Air Intake and Output 11/13/16 11/13/16 11/14/16 Cumulative From/Thru 15:00 23:00 07:00 11/10/16 16:24 - 11/14/16 04:42 Intake Total 200 ml 1528 ml 400 ml 6362 ml Output Total 900 ml 650 ml 600 ml 4600 ml Balance -700 ml 878 ml -200 ml 1762 ml Intake Oral 200 ml 1040 ml 400 ml 3326 ml IV Total 488 ml 3036 ml Output Urine Total 900 ml 650 ml 600 ml 4600 ml # Bowel Movements 1 1 Exam Constitutional: awake, alert, and oriented x4. Morbidly obese. No acute distress. Head: Normocephalic and atraumatic. Eyes: EOMI, Pupils equal round and reactive to light. No scleral icterus Heart: regular rate and rhythm. 3+ pitting edema on right lower extremity. 2/ 4 pedal pulses. Lungs: clear to auscultation bilaterally. no wheezes, rales, or rhonchi. ABD: soft, nontender. protuberant. bowel sounds present throughout. Musculoskeletal: moves all four extremities appropriately. Skin: RLE erythema, nonblanching; warm, dry. no other rashes Neuro: CN II-XII intact. No focal deficits. Psych: appropriate mood and affect. IVs and Medications Medications Reviewed: Medications were reviewed in detail Medications High Risk IV Medications: Zosyn Heparin Alteplase Lab and Diagnostics Item Value Date Time Red Blood Count 3.05 mil/mm3 L 8/14/17 0305 Mean Corpuscular Volume 102.0 fL H 11/14/16304 Mean Corpuscular Hemoglobin 33.1 pg 11/14/16304 Mean Corpuscular Hemoglobin Concent 32.5 % 11/14/16304 Red Cell Distribution Width 13.8 % 11/14/16304 Platelet Count 241 betito/L 11/14/16304 Neutrophils (%) (Auto) 77 % H 11/14/16304 Lymphocytes (%) (Auto) 10 % L 11/14/16304 Monocytes (%) (Auto) 6 % 11/14/16304 Eosinophils (%) (Auto) 2 % 11/14/16304 Basophils (%) (Auto) 1 % 11/14/16304 Band Neutrophils % 3 % 11/14/16304 Estimat Glomerular Filtration Rate 30 mL/min 11/14/16304 Calcium Level 8.1 mg/dL L 11/14/16304 Phosphorus Level 3.4 mg/dL 11/14/16304 Magnesium Level 2.1 mg/dL 11/14/16304 Total Bilirubin 0.2 mg/dL 11/14/16304 Aspartate Amino Transf (AST/SGOT) 15 U/L 11/14/16304 Alanine Aminotransferase (ALT/SGPT) 10 U/L 11/14/16304 Alkaline Phosphatase 77 U/L 11/14/16304 Total Protein 5.6 g/dL L 11/14/16304 Albumin 2.9 g/dL L 11/14/16304 Procalcitonin 0.28 ng/mL H 11/14/16304 Activated Partial Thromboplast Time 69.7 sec H 11/14/16304 Result Diagram: 11/14/1630411/14/16304 Microbiology MRSA negative Urine Culture negative. X-Rays, CTs and MRIs PROCEDURE: X-RAY CHEST, TWO VIEWS IMPRESSION: Normal for age, source of current symptoms is not seen. Dictated by: Alber Roberto M.D. on 11/10/2016 at 18:25 Assessment & Plan Patient is a 70 yo male with pmh of DVTs, PE (s/p IVC filter), Cranial hematoma , GI bleeds who is coming in with right leg swelling and erythema. DVT, Present on Admission, Active, improving - h/o of DVTs, warfarin stopped before due to bleeds, s/p IVC filter, US positive for RLE DVT -had EKOS on 11/12, repeat EKOS 11/14 -on heparin drip at DVT protocol, will removed 1 hour prior to removal of cath @ 2200 (11/14), and then place patient back on no more than 2 hours afterwards. -catheter directed thrombolysis initiated, currently receiving alteplase (11/14) and being monitored in the CCU. Cellulitis vs DVT, Present on admission - erythema with swelling, right lower leg -Will cover with Zosyn, appearance and history suggestive of Strep cellulitis -Observe over the next 24 hours and will reassess after procedure on 11/14. CKD, acute, Present on admission, stable - baseline ~1.90. SCr 2.3 11/14, likely elevated due to recent procedure. Will monitor. -monitor Cr function - avoid nephrotoxins DM Type II requiring insulin, Chronic, Present on Admission, Stable - Thus far patient has been normoglycemic, will observe closely and begin long acting coverage if necessary - on sliding scale, will adjust according to daily needs HTN, Chronic, Present on Admission, Stable -monitor bp inpatient - continue atenolol 50mg PO H/o GI bleeds, Chronic, Stable. - Continue to monitor H&H - on famotidine for prophylaxis Depression/Anxiety, chronic - on citalopram BPH, Chronic - on tamsolusin Obesity -BMI 41.3 -Diabetic diet with constant carb Disposition: Patient is being anticoagulated for a RLE DVT and has been treated with EKOSx2 in the laborer pie bakery 11/12 and 11/14 with cath removal @2200 on 11/14. Patient tolerated well and will be downgraded from CCU after removal of Alteplase and stable. Due to the complexity of the case and continue need for inpatient care, the length of stay is uncertain at this time. GI Prophylaxis: H2 ron VTE Prophylaxis: Other (on heparin drip ) VTE Mechanical Devices: Venous Foot Pump Resuscitation Status: CPR: Attempt Resuscitation Attending Statement The patient was seen and examined together with Dr. Christine on 11/14/16 and I have added additional information to the note above. Justo Christine DO Nov 14, 2016 16:17 Sheryl Crews DO Nov 15, 2016 20:28
--- NOTE | 2016-11-14 21:29 | DI96 ---
[address] [address] PERIPHERAL CATHETERIZATION/INTERVENTION REPORT PATIENT: FLORA OLEA : 1945 MR#: [id number] ADMIT: 11/10/2016 JOB ID: [id number] DATE: 11/14/2016 PATIENT PROFILE: The patient is a 70-year-old male who has deep venous thrombosis of the right lower extremity. PROCEDURE: 1. Conscious sedation for 25 minutes. 2. Central venous access from the right common femoral vein under ultrasound guidance. 3. Catheter-directed thrombolysis to the right external iliac vein, right common iliac vein and inferior vena cava. COMPLICATIONS: None. PROCEDURE IN DETAIL: Conscious sedation was achieved with IV Versed and IV fentanyl. Central venous access was obtained from the right groin under 1% lidocaine local anesthesia using a micropuncture needle under ultrasound guidance. Once the position was confirmed in the common femoral vein, a [place] Advantage wire was directed into the inferior vena cava. A Navicross catheter was used to direct the [place] Advantage wire through the IVC filter. It was then exchanged to an EKOS catheter with a treatment length of 30 cm. It was then secured in situ under fluoroscopy. The patient was then transferred to intensive care unit in stable condition. FLUORO TIME: 1.9 minutes. RESULTS: 1. Successful EKOS catheter placement in the inferior vena cava through the IVC filter, right common iliac vein and right external iliac vein. 2. Catheter-directed thrombolysis initiated. DUSTY
[2016-11-14] MEDS: Famotidine Inj 20 MG in IV Premix 1 EACH IV SCH (22:13)
[2016-11-14] MEDS ORDERED: 0.9% Sodium Chloride 250 ML ONE (22:19)
[2016-11-15] VITALS (15 sets, daily range): BP systolic 103–136; BP diastolic 53–72; PULSE 55–66; RESP 13–22; O2SAT 98–99
[2016-11-15] MEDS ORDERED: Heparin 25K Unit/500mL 0.45 NS 25,000 UNIT in IV Premix 1 EACH IV SCH ×2 (01:15→08:30)
[2016-11-15] MEDS ORDERED: Heparin 5,000 Unit/mL Inj IVPUSH PRN (01:15)
[2016-11-15] MEDS: Piperacillin-Tazo 3.375 Gm Inj 3.375 GM in Dextrose 5% Minibag Plus 50 ML IV SCH ×3 (05:29→22:06)
[2016-11-15] MEDS ORDERED: Heparin 10,000 Unit/1,000 mL NS Premix IV ONE (07:49)
[2016-11-15] MEDS ORDERED: Heparin 1,000 Unit/mL 10 mL Inj ONE ×2 (07:49→08:01)
[2016-11-15] MEDS ORDERED: Heparin 1,000 Units/500 mL NS Premix IV ONE (07:56)
[2016-11-15] MEDS: Insulin LISPRO 300 Unit/3 mL Inj SUBQ SCH ×4 (08:00→22:00)
[2016-11-15] MEDS: Alteplase (Cathflo) Inj 12 MG in 0.9% Sodium Chloride 250 ML IV SCH ×2 (08:28→18:57)
--- NOTE | 2016-11-15 08:46 | DI96 ---
[address] [address] PERIPHERAL CATHETERIZATION/INTERVENTION REPORT PATIENT: FLORA OLEA : 1945 MR#: [id number] ADMIT: 11/10/2016 JOB ID: [id number] DATE: 11/15/2016 PATIENT PROFILE: The patient is a 78-year-old male who presented with acute deep venous thrombosis of the right lower extremity. He had catheter directed thrombolysis to the right femoral vein, right common femoral vein, right external iliac vein, right common iliac vein and inferior vena cava. His right leg swelling has decreased. PROCEDURE: 1. Right external iliac venogram. 2. Catheter-directed thrombolysis to the inferior vena cava. COMPLICATION: None. METHOD: Right external iliac venogram was performed in the AP view by injecting contrast via the existing venous sheaths. It demonstrated no residual thrombus in the right external iliac and right common iliac veins. However, there is large residual thrombus burden left in the lower portion of the inferior vena cava and inside the IVC filter. A [place] Advantage wire was directed into the inferior vena cava. An EKOS catheter with a treatment length of 18 cm was then placed in the inferior vena cava. Catheter thrombosed axis initiated. The patient was transferred to intensive care unit in stable condition. TOTAL CONTRAST USED: 12 cc. FLUOROSCOPY TIME: 1.9 minutes. RESULTS: 1. The right external iliac and right common iliac veins are free of thrombus. 2. Large residual thrombus in the inferior vena cava, especially inside the IVC filter. 3. Catheter-directed thrombolysis initiated to the inferior vena cava. [facility]
--- NOTE | 2016-11-15 09:41 | PCM.PNMED ---
Subjective Date of Service Nov 15, 2016 Subjective Patient is a 70 yo male with PMHx of DVTs, PE (s/p IVC filter), Cranial hematoma , GI bleeds who is coming in with right leg swelling and erythema. Nursing reports that cath team saw patient at 2200 on 11/14 and decided that patient would be seen in farm laborer the next morning for a third EKOS. Patient seen and examined after returning from farm laborer. Patient c/o low back pain that is not new to him. Denies CP, SOB, ABD pain, N/V/D, or headache. ROS reviewed and otherwise negative unless noted above. Exam Vital Signs Vital Sign - Last Date Time Temp Pulse Resp B/P Pulse Ox O2 Delivery O2 Flow Rate FiO2 11/15/16 04:00 60 16 126/60 98 CPAP 11/14/16 23:17 36.4 Intake and Output 11/14/16 11/14/16 11/15/16 Cumulative From/Thru 15:00 23:00 07:00 11/10/16 16:24 - 11/15/16 06:12 Intake Total 171 ml 1271 ml 7804 ml Output Total 1500 ml 1400 ml 7500 ml Balance -1329 ml -129 ml 304 ml Intake Oral 400 ml 3726 ml IV Total 171 ml 871 ml 4078 ml Output Urine Total 1500 ml 1400 ml 7500 ml # Bowel Movements 0 1 Exam Constitutional: awake, alert and oriented x4. Obese. No acute distress. Head: Normocephalic and atraumatic Eyes: Pupils equal round and reactive to light. Heart: regular rate and rhythm. 3+ pitting edema on RLE, 2/4 pedal pulses bilaterally. Lungs: clear to auscultation bilaterally. no wheeze, rales, or rhonchi. ABD: protuberant, soft, nontender. bowel sounds present throughout. Musculoskeletal: Patient laying supine per post farm laborer protocol. Able to move bilateral UE, will reassess LE once able to move. Skin: Warm, dry, erythema on RLE from ankle up to knee. Tense with scattered blisters that are tense, negative Nikolsky. Neuro: CN II-XII intact. No focal deficits. Psych: appropriate mood and affect. IVs and Medications Medications Reviewed: Medications were reviewed in detail Medications High Risk IV Medications: Zosyn Alteplase Heparin Lab and Diagnostics Item Value Date Time Hematocrit 32.0 % L 11/15/16 0905 Platelet Count 182 betito/L 11/15/16 06 Hematocrit 31.9 % L 11/15/16 06 Hematocrit 31.1 % L 11/15/16 0230 Platelet Count 194 betito/L 11/15/16 0101 Hemoglobin 10.3 g/dL L 11/15/16 0600 Blood Urea Nitrogen 40 mg/dL H 11/14/16 0305 Estimat Glomerular Filtration Rate 30 mL/min 11/14/16 0305 Calcium Level 8.1 mg/dL L 11/14/16 0305 Phosphorus Level 3.4 mg/dL 11/14/16 0305 Magnesium Level 2.1 mg/dL 11/14/16 0305 Total Bilirubin 0.2 mg/dL 11/14/16 0305 Aspartate Amino Transf (AST/SGOT) 15 U/L 11/14/16 0305 Alkaline Phosphatase 77 U/L 11/14/16 0305 Alanine Aminotransferase (ALT/SGPT) 10 U/L 11/14/16 0305 Total Protein 5.6 g/dL L 11/14/16 0305 Albumin 2.9 g/dL L 11/14/16 0305 Procalcitonin 0.28 ng/mL H 11/14/16 0305 Procalcitonin 0.26 ng/mL H 11/15/16 06 C-Reactive Protein 4.7 mg/dL H 11/15/16 06 Vitamin B12 Level 177 pg/mL L 11/13/16 0200 Folate 4.5 ng/mL 11/13/16 0200 Activated Partial Thromboplast Time 99.4 sec H 11/15/16 06 Fibrinogen 137 mg/dL L 11/15/16 06 Activated Partial Thromboplast Time 43.0 sec H 11/15/16 0101 Fibrinogen 89 mg/dL *L 11/15/16 010 Result Diagram: 11/15/1690411/15/16599 Microbiology MRSA negative Urine Culture negative. X-Rays, CTs and MRIs PROCEDURE: X-RAY CHEST, TWO VIEWS IMPRESSION: Normal for age, source of current symptoms is not seen. Dictated by: Alber Roberto M.D. on 11/10/2016 at 18:25 12-lead ECG Sinus rhythm - low voltage Assessment & Plan Patient is a 70 yo male with pmh of DVTs, PE (s/p IVC filter), Cranial hematoma , GI bleeds who is coming in with right leg swelling and erythema. Acute DVT with history of DVTs, Present on Admission, Active, improving - h/o of DVTs, warfarin stopped before due to bleeds, s/p IVC filter, US positive for RLE DVT -had EKOS on 11/12, repeat EKOS 11/14, third EKOS 11/15 -on heparin drip at DVT protocol, will removed 1 hour prior to removal of cath @ 1800 (11/15), and then place patient back on no more than 2 hours afterwards. -catheter directed thrombolysis initiated, currently receiving alteplase (11/15) and being monitored in the CCU. Cellulitis vs DVT, Present on admission - erythema with swelling, right lower leg -Will cover with Zosyn, appearance and history suggestive of Strep cellulitis -Observe over the next 24 hours and will reassess after procedure on 11/14. -Will consult wound care for evaluation of RLE. CRP elevated. Acute on Chronic Kidney Disease, Present on admission, stable - baseline ~1.90. SCr 2.3 11/14, likely elevated due to recent procedure. Will monitor. -monitor Cr function - avoid nephrotoxins DM Type II requiring insulin, Chronic, Present on Admission, Stable - Thus far patient has been normoglycemic, will observe closely and begin long acting coverage if necessary - on sliding scale, will adjust according to daily needs HTN, Chronic, Present on Admission, Stable -monitor bp inpatient - continue atenolol 50mg PO H/o GI bleeds, Chronic, Stable. - Continue to monitor H&H - on famotidine for prophylaxis Depression/Anxiety, chronic - on citalopram BPH, Chronic - on tamsolusin Obesity -BMI 41.3 -Diabetic diet with constant carb Disposition: Patient is being anticoagulated for a RLE DVT and has been treated with EKOSx3 in the farm laborer 11/12, 11/14, and 11/15 with cath removal @1800 on . Patient tolerated well and will be downgraded from CCU after removal of Alteplase and stable. Due to the complexity of the case and continue need for inpatient care, the length of stay is uncertain at this time. GI Prophylaxis: H2 ron VTE Prophylaxis: Other (on heparin drip ) VTE Mechanical Devices: Venous Foot Pump Resuscitation Status: CPR: Attempt Resuscitation Attending Statement The patient was seen and examined together with Resident/House-staff on 11/15/16 and I agree with the history, exam and plan as outlined in the note above. Justo Christine DO Nov 15, 2016 09:41 Shaak Elias Nov 15, 2016 17:05
[2016-11-15] MEDS: HYDROmorphone 1 mg/mL Inj IV PRN (18:05)
[2016-11-15] MEDS: Famotidine Inj 20 MG in IV Premix 1 EACH IV SCH (21:04)
[2016-11-16] VITALS (13 sets, daily range): BP systolic 102–134; BP diastolic 50–62; PULSE 49–64; RESP 15–18; O2SAT 94–100
[2016-11-16] MEDS ORDERED: Heparin 1,000 Units/mL 10 mL DVT/PE Bolus Inj IVPUSH PRN (02:35)
[2016-11-16] MEDS ORDERED: Heparin 5,000 Unit/mL Inj IVPUSH PRN (02:44)
[2016-11-16] MEDS: Heparin 25K Unit/500mL 0.45 NS 25,000 UNIT in IV Premix 1 EACH IV SCH ×2 (03:11→16:51)
[2016-11-16] MEDS: Piperacillin-Tazo 3.375 Gm Inj 3.375 GM in Dextrose 5% Minibag Plus 50 ML IV SCH ×3 (03:16→20:43)
[2016-11-16] MEDS: Alteplase (Cathflo) Inj 12 MG in 0.9% Sodium Chloride 250 ML IV SCH ×3 (03:16→20:12)
[2016-11-16] MEDS: HYDROmorphone 1 mg/mL Inj IV PRN (04:30)
[2016-11-16 05:53] LABS: Mean Corpuscular Hemoglobin 33.4 pg (27.0-35.0); Platelet Count 185 bil/L (150-400)
[2016-11-16 06:36] LABS: BASOPHILS % (AUTO) 0 % (0-3); EOSINOPHILS % (AUTO) 4 % (0-5); MONOCYTES % (AUTO) 10 % (4-12); NEUTROPHILS % (AUTO) 73 % (40-74)
[2016-11-16] MEDS: Insulin LISPRO 300 Unit/3 mL Inj SUBQ SCH ×4 (08:00→20:11)
--- NOTE | 2016-11-16 19:34 | PCM.PNMED ---
Subjective Date of Service Nov 16, 2016 Subjective Patient is a 70 yo male with PMHx of DVTs, PE (s/p IVC filter), Cranial hematoma , GI bleeds who is coming in with right leg swelling and erythema. Nursing reports no acute events overnight. patient seen and examined. laying in bed. c/o mild low back pain. Denies CP, SOB, ABD pain, N/V/D, Headache, or bleeding. ROS reviewed and is otherwise negative unless noted above. Exam Vital Signs Vital Sign - Last Date Time Temp Pulse Resp B/P Pulse Ox O2 Delivery O2 Flow Rate FiO2 11/16/16 18:06 36.8 58 18 134/54 100 Room Air Intake and Output 11/15/16 11/15/16 11/16/16 Cumulative From/Thru 15:00 23:00 07:00 11/10/16 16:24 - 11/16/16 06:19 Intake Total 592 ml 526 ml 8922 ml Output Total 1200 ml 1000 ml 9700 ml Balance -608 ml -474 ml -778 ml Intake Oral 350 ml 200 ml 4276 ml IV Total 242 ml 326 ml 4646 ml Output Urine Total 1200 ml 1000 ml 9700 ml # Bowel Movements 1 2 Exam Constitutional: Awake, alert, and oriented x4, obese, in no acute distress. Head: normocephalic and atraumatic Eyes: EOMI, Pupils equal round and reactive. Heart: bradycardia, regular rhythm. 2+ pitting edema. Lungs: clear to auscultation bilaterally. no wheeze, rales, or rhonchi ABD: soft, nontender, bowel sounds present throughout Musculoskeletal: moves all four extremities appropriately. Skin: warm, dry, erythematous area on lateral calf that is nonblanching; improved from yesterday's exam. Neuro: CN II-XII intact. no focal deficits. Psych: Appropriate mood and affect. IVs and Medications Medications Reviewed: Medications were reviewed in detail Medications High Risk IV Medications: Zosyn Heparin Lab and Diagnostics Item Value Date Time Red Blood Count 2.99 mil/mm3 L 11/16/16 0500 Hematocrit 33.4 % L 11/16/16 0835 Hematocrit 32.6 % L 11/16/16 1525 Hematocrit 31.1 % L 11/16/16 0500 Mean Corpuscular Hemoglobin 33.4 pg 11/16/16 0500 Mean Corpuscular Hemoglobin Concent 32.2 % 11/16/16 0500 Red Cell Distribution Width 13.5 % 11/16/16 0500 Platelet Count 185 betito/L 11/16/16 0500 Neutrophils (%) (Auto) 73 % 11/16/16 0500 Monocytes (%) (Auto) 10 % 11/16/16 0500 Eosinophils (%) (Auto) 4 % 11/16/16 0500 Basophils (%) (Auto) 0 % 11/16/16 0500 Metamyelocytes % 2 % H 11/16/16 0500 Platelet Count 199 betito/L 11/16/16 1525 Platelet Count 212 betito/L 11/16/16 1834 Estimat Glomerular Filtration Rate 30 mL/min 11/14/16 0305 Calcium Level 8.1 mg/dL L 11/14/16 0305 Phosphorus Level 3.4 mg/dL 11/14/16 0305 Magnesium Level 2.1 mg/dL 11/14/16 0305 Total Bilirubin 0.2 mg/dL 11/14/16 0305 Aspartate Amino Transf (AST/SGOT) 15 U/L 11/14/16 0305 Alanine Aminotransferase (ALT/SGPT) 10 U/L 11/14/16 0305 Alkaline Phosphatase 77 U/L 11/14/16 0305 Total Protein 5.6 g/dL L 11/14/16 0305 Albumin 2.9 g/dL L 11/14/16 0305 Procalcitonin 0.28 ng/mL H 11/14/16 0305 Procalcitonin 0.26 ng/mL H 11/15/16 0600 C-Reactive Protein 4.7 mg/dL H 11/15/16 0600 Result Diagram: 11/16/16 1834 11/16/16 0500 Microbiology MRSA negative Urine Culture negative. X-Rays, CTs and MRIs PROCEDURE: X-RAY CHEST, TWO VIEWS IMPRESSION: Normal for age, source of current symptoms is not seen. Dictated by: Alber Roberto M.D. on 11/10/2016 at 18:25 12-lead ECG Sinus rhythm - low voltage Assessment & Plan Patient is a 70 yo male with pmh of DVTs, PE (s/p IVC filter), Cranial hematoma , GI bleeds who is coming in with right leg swelling and erythema. Acute DVT with history of DVTs, Present on Admission, Active, improving - h/o of DVTs, warfarin stopped before due to bleeds, s/p IVC filter, US positive for RLE DVT -had EKOS on 11/12, repeat EKOS 11/14, third EKOS 11/15 -on heparin drip at DVT protocol, plan to transition to PO medications 11/17. Patient would like to discuss options with his . Patient's HASBLED score is 3, and with h/o bleeds on blood thinners, we will likely consult cardiology in regards to their recommendations for oral anticoagulation. -Patient removed from alteplase (11/16) and transferred out of CCU to PCC/ on tele. Cellulitis vs DVT, Present on admission - erythema with swelling, right lower leg, improving -Will cover with Zosyn, appearance and history suggestive of Strep cellulitis -Observing -Will consult wound care for evaluation of RLE. CRP elevated. Acute on Chronic Kidney Disease, Present on admission, stable - baseline ~1.90. SCr 2.3 11/14, likely elevated due to recent procedure. Will monitor. -monitor Cr function - avoid nephrotoxins DM Type II requiring insulin, Chronic, Present on Admission, Stable - Thus far patient has been normoglycemic, will observe closely and begin long acting coverage if necessary - on sliding scale, will adjust according to daily needs HTN, Chronic, Present on Admission, Stable -monitor bp inpatient -stop atenolol 50mg PO due to patient's renal function -Start Metoprolol 25mg PO BID. Hold medication if HR <60 or SBP <110. H/o GI bleeds, Chronic, Stable. - Continue to monitor H&H - on famotidine for prophylaxis Depression/Anxiety, chronic - on citalopram BPH, Chronic - on tamsolusin Obesity -BMI 41.3 -Diabetic diet with constant carb Disposition: Patient is being anticoagulated for a RLE DVT and has been treated with EKOSx3 in the landscaping and groundskeeping laborer 11/12, 11/14, and 11/15 with cath removal 11/15. Patient tolerated well has been downgraded to PCC, plan to transition to oral anticoagulation 11/16. Due to the complexity of the case and continue need for PT eval, the patient will likely be discharged home in the next 2-3 days. GI Prophylaxis: H2 ron VTE Prophylaxis: Other (on heparin drip ) VTE Mechanical Devices: Venous Foot Pump Resuscitation Status: CPR: Attempt Resuscitation Justo Christine DO Nov 16, 2016 19:34
[2016-11-16] MEDS: Famotidine Inj 20 MG in IV Premix 1 EACH IV SCH (20:08)
[2016-11-17] VITALS (7 sets, daily range): BP systolic 104–131; BP diastolic 49–77; PULSE 60–65; RESP 9–18; O2SAT 98–100
[2016-11-17 03:06] LABS: Mean Corpuscular Hemoglobin 32.7 pg (27.0-35.0); Platelet Count 214 bil/L (150-400)
[2016-11-17 03:33] LABS: BASOPHILS % (AUTO) 1 % (0-3); EOSINOPHILS % (AUTO) 2 % (0-5); MONOCYTES % (AUTO) 7 % (4-12); NEUTROPHILS % (AUTO) 69 % (40-74)
[2016-11-17] MEDS: Piperacillin-Tazo 3.375 Gm Inj 3.375 GM in Dextrose 5% Minibag Plus 50 ML IV SCH ×3 (03:50→19:51)
[2016-11-17] MEDS ORDERED: 0.9% Sodium Chloride 1,000 ML IV ONE (06:50)
[2016-11-17] MEDS: Insulin LISPRO 300 Unit/3 mL Inj SUBQ SCH ×4 (08:00→21:11)
[2016-11-17] MEDS: Heparin 25K Unit/500mL 0.45 NS 25,000 UNIT in IV Premix 1 EACH IV SCH (09:02)
[2016-11-17] MEDS: Alteplase (Cathflo) Inj 12 MG in 0.9% Sodium Chloride 250 ML IV SCH (12:53)
--- NOTE | 2016-11-17 15:50 | PCM.PNMED ---
Subjective Date of Service Nov 17, 2016 Subjective Patient is a 70 yo male with PMHx of DVTs, PE (s/p IVC filter), Cranial hematoma , GI bleeds who is coming in with right leg swelling and erythema. Nursing reports patient was supratherapeutic at 0100 11/17. Patient's dose was decreased 4 units Exam Vital Signs Vital Sign - Last Date Time Temp Pulse Resp B/P Pulse Ox O2 Delivery O2 Flow Rate FiO2 11/17/16 11:55 36.7 63 18 108/74 100 Room Air 11/17/16 00:00 21 Intake and Output 11/16/16 11/16/16 11/17/16 Cumulative From/Thru 15:00 23:00 07:00 11/10/16 16:24 - 11/17/16 05:52 Intake Total 1255 ml 577 ml 15991 ml Output Total 2500 ml 07167 ml Balance -1245 ml 577 ml -1446 ml Intake Oral 725 ml 5001 ml IV Total 530 ml 577 ml 5753 ml Output Urine Total 2500 ml 17972 ml # Bowel Movements 2 Exam Constitutional: awake, alert and oriented x4. Obese. No acute distress. Head: normocephalic and atraumatic Eyes: EOMI. Pupils equal round and reactive to light. Heart: regular rate and rhythm. 2+ pitting edema, improving. Lungs: clear to auscultation. no wheeze, rales, or rhonchi. ABD: soft, nontender, bowel sounds present throughout. Musculoskeletal: moves all four extremities. Walks around in room with assist. Skin: warm, dry, erythematous rash on right lower extremity that is receding from previous exam. Neuro: CN II-XII intact. no focal deficits. Psych: appropriate mood and affect. IVs and Medications Medications Reviewed: Medications were reviewed in detail Medications High Risk IV Medication: Zosyn Heparin Lab and Diagnostics Item Value Date Time Red Blood Count 2.97 mil/mm3 L 11/17/16106 Mean Corpuscular Hemoglobin 32.7 pg 11/17/16106 Mean Corpuscular Volume 104.0 fL H 11/17/16106 Mean Corpuscular Hemoglobin Concent 31.4 % L 11/17/16106 Red Cell Distribution Width 13.5 % 11/17/16106 Neutrophils (%) (Auto) 69 % 11/17/16 010 Lymphocytes (%) (Auto) 17 % 11/17/16 010 Monocytes (%) (Auto) 7 % 11/17/16 010 Eosinophils (%) (Auto) 2 % 11/17/16 010 Basophils (%) (Auto) 1 % 11/17/16 010 Band Neutrophils % 3 % 11/17/16106 Estimat Glomerular Filtration Rate 38 mL/min 11/17/16 010 Calcium Level 8.3 mg/dL L 11/17/16 010 Total Bilirubin 0.4 mg/dL 11/17/16 010 Aspartate Amino Transf (AST/SGOT) 35 U/L 11/17/16 010 Alanine Aminotransferase (ALT/SGPT) 29 U/L 11/17/16 010 Alkaline Phosphatase 86 U/L 11/17/16 010 C-Reactive Protein 4.3 mg/dL H 11/17/16 010 Total Protein 4.9 g/dL L 11/17/16 010 Albumin 2.6 g/dL L 11/17/16 010 Activated Partial Thromboplast Time 45.9 sec H 11/17/16 1205 Fibrinogen 268 mg/dL 11/17/16 1205 Activated Partial Thromboplast Time 30.8 sec 11/17/16 0610 Result Diagram: 11/17/16 1205 11/17/16 0225 Microbiology MRSA negative Urine Culture negative. X-Rays, CTs and MRIs PROCEDURE: X-RAY CHEST, TWO VIEWS IMPRESSION: Normal for age, source of current symptoms is not seen. Dictated by: Alber Roberto M.D. on 11/10/2016 at 18:25 12-lead ECG Sinus rhythm - low voltage Assessment & Plan Patient is a 70 yo male with pmh of DVTs, PE (s/p IVC filter), Cranial hematoma , GI bleeds who is coming in with right leg swelling and erythema. Acute DVT with history of DVTs, Present on Admission, Active, improving - h/o of DVTs, warfarin stopped before due to bleeds, s/p IVC filter, US positive for RLE DVT -had EKOS on 11/12, repeat EKOS 11/14, third EKOS 11/15 -on heparin drip at DVT protocol, plan to transition to PO medications 11/17. Patient would like to discuss options with his . -Patient's HASBLED score is 3, and with h/o bleeds on blood thinners, we consulted hematology in regards to their recommendations for oral anticoagulation, and appreciate their recommendations. -Patient removed from alteplase (11/16) and transferred out of CCU to PCC/ on tele. Cellulitis vs DVT, Present on admission - erythema with swelling, right lower leg, improving -Will cover with Zosyn, appearance and history suggestive of Strep cellulitis -Observing -Will consult wound care for evaluation of RLE. CRP elevated. Acute on Chronic Kidney Disease, Present on admission, stable - baseline ~1.90. SCr 2.3 11/14, likely elevated due to recent procedure. Will monitor. -monitor Cr function - avoid nephrotoxins DM Type II requiring insulin, Chronic, Present on Admission, Stable - Thus far patient has been normoglycemic, will observe closely and begin long acting coverage if necessary - on sliding scale, will adjust according to daily needs HTN, Chronic, Present on Admission, Stable -monitor bp inpatient -stop atenolol 50mg PO due to patient's renal function -Start Metoprolol 25mg PO BID. Hold medication if HR <60 or SBP <110. H/o GI bleeds, Chronic, Stable. - Continue to monitor H&H - on famotidine for prophylaxis Depression/Anxiety, chronic - on citalopram BPH, Chronic - on tamsolusin Obesity -BMI 41.3 -Diabetic diet with constant carb Disposition: Patient is being anticoagulated for a RLE DVT and has been treated with EKOSx3 in the laborer yard 11/12, 11/14, and 11/15 with cath removal 11/15. Patient tolerated well has been downgraded to PCC, plan to transition to oral anticoagulation 11/16. Due to the complexity of the case and continue need for PT eval, the patient will likely be discharged home in the next 2-3 days. GI Prophylaxis: H2 ron VTE Prophylaxis: Other (on heparin drip ) VTE Mechanical Devices: Venous Foot Pump Resuscitation Status: CPR: Attempt Resuscitation Attending Statement The patient was seen and examined together with Dr. Christine on 11/17/2016 and I agree with the history, exam and plan as outlined in the note above. . Justo Christine DO Nov 17, 2016 15:50 Abhay Jeff MD Nov 19, 2016 16:50
[2016-11-17] MEDS: Famotidine Inj 20 MG in IV Premix 1 EACH IV SCH (19:51)
[2016-11-18] MEDS: Heparin 25K Unit/500mL 0.45 NS 25,000 UNIT in IV Premix 1 EACH IV SCH (00:02)
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
[2016-11-18 03:40] LABS: BASOPHILS % (AUTO) 0.7 % (0-3); EOSINOPHILS % (AUTO) 3.3 % (0-5); MONOCYTES % (AUTO) 9.7 % (4-12); Mean Corpuscular Hemoglobin 33.5 pg (27.0-35.0); NEUTROPHILS % (AUTO) 65.7 % (40-74); Platelet Count 252 bil/L (150-400)
[2016-11-18] MEDS: Piperacillin-Tazo 3.375 Gm Inj 3.375 GM in Dextrose 5% Minibag Plus 50 ML IV SCH (04:16)
[2016-11-18 08:50] VITALS: BP 112/54; PULSE 64; RESP 18; O2SAT 98
[2016-11-18] MEDS: Insulin LISPRO 300 Unit/3 mL Inj SUBQ SCH ×4 (09:07→21:00)
[2016-11-18 11:34] LABS: INR 1.08 ratio
[2016-11-18 12:46] VITALS: BP 99/63; PULSE 78; RESP 14; O2SAT 99
[2016-11-18] MEDS: Dabigatran 150 mg Capsule PO SCH ×2 (13:53→20:45)
[2016-11-18] MEDS: Doxycycline Inj 100 MG in Dextrose 5% Minibag Plus 100 ML IV SCH ×2 (13:55→23:53)
[2016-11-18 16:01] VITALS: BP 135/69; PULSE 70; RESP 16; O2SAT 97
[2016-11-18 16:05] LABS: INR 1.04 ratio
--- NOTE | 2016-11-18 16:27 | DRSVH ---
PROCEDURE: US VEINOUS LEG DUPLEX UNILATERAL, RIGHT INDICATIONS: swelling. h/o DVT TECHNIQUE: Real-time imaging, as well as color and pulse Doppler interrogation, were performed of the lower extr emity deep veins from the inguinal ligament to the popliteal fossa. COMPARISON: [facility], US, PVE UNILATERAL RIGHT, 11/10/2016, 13:26. FINDINGS: The deep veins are normally compressible, and free of intraluminal thrombus. Color and pu lse Doppler demonstrate normal phasic intraluminal flow. Please note the posterior tibial and peronea l veins could not be identified due to overlying patient bandaging. IMPRESSION: No evidence of deep venous thrombus in the right lower extremity. The peroneal and hull drafter ior tibial veins were obscured by overlying bandages and could not be evaluated. Dictated by: Neil De La Rosa M.D. on 11/18/2016 at 16:24 Approved by: Neil De La Rosa M.D. on 11/18/2016 at 16:26
--- NOTE | 2016-11-18 19:54 | PCM.PNMED ---
Subjective Date of Service Nov 18, 2016 Subjective Patient is a 70 yo male with PMHx of DVTs, PE (s/p IVC filter), Cranial hematoma , GI bleeds who is coming in with right leg swelling and erythema. No acute events overnight. Patient seen and examined. Denies CP, SOB, ABD pain, N/V/D. Reports increased swelling in his RLE. Denies any pain in the area. ROS reviewed and otherwise negative unless noted above. Exam Vital Signs Vital Sign - Last Date Time Temp Pulse Resp B/P Pulse Ox O2 Delivery O2 Flow Rate FiO2 11/18/16 16:01 36.4 70 16 135/69 97 Room Air 11/17/16 00:00 21 Intake and Output 11/17/16 11/17/16 11/18/16 Cumulative From/Thru 15:00 23:00 07:00 11/10/16 16:24 - 11/18/16 06:52 Intake Total 100 ml 540 ml 550 ml 47647 ml Output Total 1050 ml 1200 ml 400 ml 55155 ml Balance -950 ml -660 ml 150 ml -2906 ml Intake Oral 100 ml 540 ml 100 ml 5741 ml IV Total 450 ml 6203 ml Output Urine Total 1050 ml 1200 ml 400 ml 72626 ml # Bowel Movements 2 Exam Constitutional: awake, alert and oriented x4. Obese. No acute distress. Head: normocephalic and atraumatic Eyes: EOMI. Pupils equal round and reactive to light. Heart: regular rate and rhythm. 2+ pitting edema bilaterally Lungs: clear to auscultation. no wheeze, rales, or rhonchi. ABD: soft, nontender, bowel sounds present throughout. Musculoskeletal: moves all four extremities. Walks around in room with assist. Skin: warm, dry, deeply erythematous rash on right lower extremity that is receding from previous exam. New blisters appearing on eryhtematous site. Neuro: CN II-XII intact. no focal deficits. Psych: appropriate mood and affect. IVs and Medications Medications Reviewed: Medications were reviewed in detail Medications High Risk IV Medications: Doxycycline. Lab and Diagnostics Item Value Date Time Red Blood Count 2.81 mil/mm3 L 11/18/16 0335 Mean Corpuscular Hemoglobin 33.5 pg 11/18/16 0335 Mean Corpuscular Hemoglobin Concent 31.9 % L 11/18/16 0335 Red Cell Distribution Width 13.8 % 11/18/16 033 Neutrophils (%) (Auto) 65.7 % 11/18/16 033 Lymphocytes (%) (Auto) 13.4 % L 11/18/16 033 Monocytes (%) (Auto) 9.7 % 11/18/16334 Eosinophils (%) (Auto) 3.3 % 11/18/16334 Basophils (%) (Auto) 0.7 % 11/18/16334 Estimat Glomerular Filtration Rate 36 mL/min 11/18/16334 Calcium Level 8.2 mg/dL L 11/18/16334 Total Bilirubin 0.4 mg/dL 11/18/16334 Aspartate Amino Transf (AST/SGOT) 33 U/L 11/18/16334 Alanine Aminotransferase (ALT/SGPT) 31 U/L 11/18/16334 Alkaline Phosphatase 89 U/L 11/18/16334 Total Protein 5.0 g/dL L 11/18/16334 Albumin 2.6 g/dL L 11/18/16334 Prothrombin Time 11.1 sec 11/18/16 1538 Prothromb Time International Ratio 1.04 ratio 11/18/16 153 Activated Partial Thromboplast Time 35.7 sec H 11/18/16 1538 Activated Partial Thromboplast Time 75.6 sec H 11/18/16 0811 Result Diagram: 11/18/1681011/18/16334 Microbiology MRSA negative Urine Culture negative. X-Rays, CTs and MRIs PROCEDURE: X-RAY CHEST, TWO VIEWS IMPRESSION: Normal for age, source of current symptoms is not seen. Dictated by: Alber Roberto M.D. on 11/10/2016 at 18:25 PROCEDURE: US VEINOUS LEG DUPLEX UNILATERAL, RIGHT IMPRESSION: No evidence of deep venous thrombus in the right lower extremity. The peroneal and posterior tibial veins were obscured by overlying bandages and could not be evaluated. Dictated by: Neil De La Rosa M.D. on 11/18/2016 at 16:24 12-lead ECG Sinus rhythm - low voltage Assessment & Plan Patient is a 70 yo male with pmh of DVTs, PE (s/p IVC filter), Cranial hematoma , GI bleeds who is coming in with right leg swelling and erythema. Acute DVT with history of DVTs, Present on Admission, Active, improving - h/o of DVTs, warfarin stopped before due to bleeds, s/p IVC filter, US positive for RLE DVT -had EKOS on 11/12, repeat EKOS 11/14, third EKOS 11/15 -Started patient on PO Pradaxa 150mg PO BID -Patient's HASBLED score is 3, and with h/o bleeds on blood thinners, we consulted hematology in regards to their recommendations for oral anticoagulation, and appreciate their recommendations. -Patient removed from alteplase (11/16) and transferred out of CCU to PCC/ on tele. Cellulitis vs DVT, Present on admission - erythema with swelling, right lower leg, improving -Stop Zosyn, start Doxycycline -Wound cultured -US today negative -Observing -Will consult wound care for evaluation of RLE. CRP elevated. Acute on Chronic Kidney Disease, Present on admission, stable - baseline ~1.90. SCr 2.3 11/14, likely elevated due to recent procedure. Will monitor. -monitor Cr function - avoid nephrotoxins DM Type II requiring insulin, Chronic, Present on Admission, Stable - Thus far patient has been normoglycemic, will observe closely and begin long acting coverage if necessary - on sliding scale, will adjust according to daily needs HTN, Chronic, Present on Admission, Stable -monitor bp inpatient -stop atenolol 50mg PO due to patient's renal function -Start Metoprolol 25mg PO BID. Hold medication if HR <60 or SBP <110. H/o GI bleeds, Chronic, Stable. - Continue to monitor H&H - on famotidine for prophylaxis Depression/Anxiety, chronic - on citalopram BPH, Chronic - on tamsolusin Obesity -BMI 41.3 -Diabetic diet with constant carb Disposition: Patient is being anticoagulated for a RLE DVT and has been treated with EKOSx3 in the aquatic laborer 11/12, 11/14, and 11/15 with cath removal 11/15. Patient tolerated well has been downgraded to PCC, plan to transition to oral anticoagulation 11/16. We have started patient on PO anticoagulation. Due to the complexity of the case and continue need for PT eval, the patient will likely be discharged home in the next 2-3 days. GI Prophylaxis: H2 ron VTE Prophylaxis: Other (on heparin drip ) VTE Mechanical Devices: Venous Foot Pump Resuscitation Status: CPR: Attempt Resuscitation Attending Statement The patient was seen and examined together with Dr. Christine on 11/18/2016 and I agree with the history, exam and plan as outlined in the note above. . Justo Christine DO Nov 18, 2016 19:54 Abhay Jeff MD Nov 19, 2016 17:11
[2016-11-18 20:38] VITALS: BP 139/72; PULSE 77; RESP 20; O2SAT 96
[2016-11-18 23:55] VITALS: BP 118/64; PULSE 63; RESP 18; O2SAT 97
[2016-11-19 03:42] LABS: Mean Corpuscular Hemoglobin 32.9 pg (27.0-35.0); Mean Corpuscular Volume 104.7 fL (81-100); Platelet Count 275 bil/L (150-400)
[2016-11-19 04:08] LABS: BASOPHILS % (AUTO) 0 % (0-3); EOSINOPHILS % (AUTO) 5 % (0-5); MONOCYTES % (AUTO) 11 % (4-12); NEUTROPHILS % (AUTO) 70 % (40-74)
[2016-11-19] MEDS: Insulin LISPRO 300 Unit/3 mL Inj SUBQ SCH ×3 (08:00→17:41)
[2016-11-19 08:30] VITALS: BP 134/64; PULSE 62; RESP 18; O2SAT 97
[2016-11-19] MEDS: Dabigatran 150 mg Capsule PO SCH (08:30)
[2016-11-19] MEDS: Doxycycline Inj 100 MG in Dextrose 5% Minibag Plus 100 ML IV SCH (08:30)
[2016-11-19 12:30] VITALS: BP 119/62; PULSE 62; RESP 18; O2SAT 97
--- NOTE | 2016-11-19 13:53 | PCM.DIMED ---
Justo Christine DO 11/19/16 1353: Discharge Instructions Date of Service Nov 19, 2016 Dates of Hospitalization Nov 10, 2016 at 17:51 Discharge Diagnosis Discharge Diagnosis Acute DVT with history of DVTs Cellulitis vs DVT Acute on Chronic Kidney Disease DM Type II Hypertension H/o GI bleeds Depression/Anxiety BPH Obesity Medication Instructions Additional med instructions I am sending you home with Pradaxa 150 mg tablets to take twice a day for three months. Then you need to take 75mg dose twice a day for a detention basis. You need to go to [email or web address] to register for the copay card for cheap refills. I am sending you home with Metoprolol Tartrate 25mg tablets to take twice a day. I am sending you home with Tamsulosin 0.8mg tablets to take daily. I am sending you home with Augmentin 500-125mg tablets to take twice a day for the next ten days. Take these until they are completed. Test Results Test Results Ultrasound on 11/18 of your right leg showed no evidence of clot. Diet Discharge Diet: Diabetic, Renal Diet Activity Discharge Activity: Limited until seen by PCP Call your provider Call your provider for: Fever or Chills, Shortness of breath, Bleeding, Chest pain, Vomitting, Excessive diarrhea, Weakness (unilateral) Patient Instructions Patient Instructions You will be having physical therapy daily at [facility] for strength and conditioning. I encourage you to work with them in order for you to get your strength back quickly to get home. Follow up with your primary care provider in 1 week to discuss this hospital visit. Follow-up plan Follow up with your primary care provider in 1 week to discuss this admission. Follow-up Provider: Willem Franklin MD Follow-up with PCP in: 1 week Abhay Jeff MD 11/19/16 1711: Discharge Instructions Attending's Statement The patient was seen and examined together with Dr. Christine on 11/19/2016 and I agree with the history, exam and plan as outlined in the note above. . Justo Christine DO Nov 19, 2016 13:53 Abhay Jeff MD Nov 19, 2016 17:11
[2016-11-19] MEDS ORDERED: TAMS0.4C98 PO (14:11)
[2016-11-19] MEDS ORDERED: DABI150C PO (14:11)
[2016-11-19] MEDS ORDERED: HYDR-4003 PO (14:11)
[2016-11-19] MEDS ORDERED: AMOX-363 PO (14:11)
[2016-11-19] MEDS ORDERED: METO25TA6 PO (14:11)
--- NOTE | 2016-11-19 21:05 | PCM.DC.MED ---
Discharge Summary Date of Service Nov 19, 2016 Dates of Hospitalization Date of Hospital Admission Nov 10, 2016 at 17:51 Date of Discharge: Nov 19, 2016 Providers: Admitting Physician: Dipak Jay MD Primary Care Physician: Willem Franklin MD Attending Physician: Abhay Jeff MD Diagnosis at Time of Discharge Diagnosis at Time of Discharge Acute DVT with history of DVTs Cellulitis vs DVT Acute on Chronic Kidney Disease DM Type II Hypertension H/o GI bleeds Depression/Anxiety BPH Obesity Consultations Interventional Cardiology - Dr. Michelle Hematology - Dr. Ga Surgery - Dr. Shaw Procedures XRay, CTs & MRIs PROCEDURE: X-RAY CHEST, TWO VIEWS IMPRESSION: Normal for age, source of current symptoms is not seen. Dictated by: Alber Roberto M.D. on 11/10/2016 at 18:25 PROCEDURE: US VEINOUS LEG DUPLEX UNILATERAL, RIGHT IMPRESSION: No evidence of deep venous thrombus in the right lower extremity. The peroneal and posterior tibial veins were obscured by overlying bandages and could not be evaluated. Dictated by: Neil De La Rosa M.D. on 11/18/2016 at 16:24 ECG 12 Lead Sinus rhythm - low voltage Invasive Procedures EKOS DVT procedure x3 Other Diagnostics PROCEDURE: US VEINOUS LEG DUPLEX UNILATERAL, RIGHT IMPRESSION: No evidence of deep venous thrombus in the right lower extremity. The peroneal and posterior tibial veins were obscured by overlying bandages and could not be evaluated. Dictated by: Neil De La Rosa M.D. on 11/18/2016 at 16:24 Brief History Patient is a 70 yo male with pmh of DVTs, PE (s/p IVC filter), Cranial hematoma , GI bleeds who is coming in with right leg swelling and erythema. Patient said he had his first DVT in 1986 when he had a left leg injury and had a cast put in. He had PEs after that episode and was on warfarin for some time. He had recurrent GI bleeds and a cranial hematoma (requiring surgery), resulting in discontinuation of warfarin, and IVC filter was placed. The right leg got swollen and red couple of days ago. Patient was seen and evaluated by Dr. Michelle who took patient to cath lab radiological technologist for EKOS procedure on 11/11. Patient was taken the next day for a second EKOS procedure. Alteplase was given after the second procedure with plan to remove the cath on the night of . Patient was taken the next morning (11/15) for third EKOS procedure. Dr. Michelle reported that the there was no more clot after the third procedure and patient was placed back on heparin drip following the cath removal. Patient's swelling reduced throughout the treatment, but still remained to have a baseline of 2+ edema that has been chronic to patient for months. Dr. Ga was consulted for appropriate oral anticoagulation therapy given the patient's history of multiple clots as well as spontaneous bleeds with warfarin anticoagulation. Patient was placed on Pradaxa 150mg PO BID for the next three months with a plan to reduce the dose to 75mg PO BID on a assisted basis. Physical therapy worked with patient, who ambulated to through the room, and once in the hallway, but overall recommended a transitional SNF for continued PT and strength building before coming home with home health and PT. Patient and patient's expressed concerns about discharge to home and agreed with the plan to discharge to SNF. Patient was agreeable to go to SNF in private vehicle. Patient's became erratic upon patient's discharge, yelling at staff and making various expletives to medical staff while forcefully pushing patient out in a wheelchair. Patient had no complaints during time of visit, and did not appear to be upset with plan of care that had been thoroughly explained to him. Hospital Course Patient is a 70 yo male with pmh of DVTs, PE (s/p IVC filter), Cranial hematoma , GI bleeds who is coming in with right leg swelling and erythema. Acute DVT with history of DVTs - h/o of DVTs, warfarin stopped before due to bleeds, s/p IVC filter, US positive for RLE DVT -had EKOS on 11/12, repeat EKOS 11/14, third EKOS 11/15 -Started patient on PO Pradaxa 150mg PO BID -Patient's HASBLED score is 3, and with h/o bleeds on blood thinners, we consulted hematology in regards to their recommendations for oral anticoagulation, and appreciate their recommendations. -Patient removed from alteplase (11/16) and transferred out of CCU to PCC/ on tele. Cellulitis vs DVT -Stopped Zosyn, started Doxycycline, sent patient home on Augmentin [id number] -Wound cultured -US today negative -Observing Acute on Chronic Kidney Disease - baseline ~1.90. SCr 2.3 11/14, likely elevated due to recent procedure. Will monitor. -monitored Cr function - avoided nephrotoxins DM Type II requiring insulin - Thus far patient has been normoglycemic, will observe closely and begin long acting coverage if necessary - on sliding scale, will adjust according to daily needs HTN, Chronic -monitored bp inpatient -stopped atenolol 50mg PO due to patient's renal function -Started Metoprolol 25mg PO BID. Hold medication if HR <60 or SBP <110. H/o GI bleeds - Continued to monitor H&H Depression/Anxiety - on citalopram BPH, Chronic - on tamsolusin Obesity -BMI 41.3 -Diabetic diet with constant carb Exam Vital Signs (Last) Date Time Temp Pulse Resp B/P Pulse Ox O2 Delivery O2 Flow Rate FiO2 11/19/16 16:30 CPAP/BIPAP 11/19/16 12:30 36.8 62 18 119/62 97 21 Exam Constitutional: awake, alert and oriented x4. Obese. No acute distress. Head: normocephalic and atraumatic Eyes: EOMI. Pupils equal round and reactive to light. Heart: regular rate and rhythm. 2+ pitting edema bilaterally. 2/4 pedal pulses bilaterally. Lungs: clear to auscultation. no wheeze, rales, or rhonchi. ABD: soft, nontender, bowel sounds present throughout. Musculoskeletal: moves all four extremities. Walks around in room with assist. Skin: warm, dry, erythematous rash on right lower extremity that is receding from previous exam. Healing blisters appearing on eryhtematous site. Neuro: CN II-XII intact. no focal deficits. Psych: appropriate mood and affect Test 11/10/16 17:55 11/11/16 06:15 11/11/16 22:15 11/14/16 03:05 Hemoglobin A1c 6.3% (4.8-5.6) Hold Tovar Top Tube Received (Received) Erythrocyte Sedimentation Rate 56mm/hr (0-30) Urine Color Yellow (YELLOW) Urine Appearance Cloudy (CLEAR,HAZY) Urine pH 5.5 (5.0-8.0) Urine Specific [place] 1.025 (1.003-1.035) Urine Protein Tracemg/dL (NEG,TRACE) Urine Glucose (UA) Negativemg/dL (NEGATIVE) Urine Ketones Negativemg/dL (NEGATIVE) Urine Occult Blood Negative (NEGATIVE) Urine Nitrite Negative (NEGATIVE) Urine Bilirubin Negative (NEGATIVE) Urine Urobilinogen Normalmg/dL (NORMAL) Urine Leukocyte Esterase Negative (NEGATIVE) Urine RBC 0-2/hpf (0-2) Urine WBC 0-5/hpf (0-5) Urine Epithelial Cells Occasional/hpf (NONE-MOD) Urine Crystals Amorphous urates (NONE Urine Bacteria Moderate/hpf (NONE-FEW) Urine Hyaline Casts None/lpf (NONE) Urine Granular Casts Occasional (NONE SEEN) Urine Waxy Casts None seen (NONE SEEN) Urine Red Blood Cell Casts None seen (NONE SEEN) Urine White Blood Cell Casts None seen (NONE SEEN) Urine Mucus None seen (None Seen) Urine Trichomonas None seen (NONE SEEN) Urine Yeast None (NONE SEEN) Urinalysis Comment None Urine Culture Reflexed Indicated Phosphorus Level 3.4mg/dL (2.5-4.9) Magnesium Level 2.1mg/dL (1.6-2.6) Test 11/15/16 06:00 11/17/16 01:07 11/18/16 03:35 11/18/16 15:38 Procalcitonin 0.26ng/mL (0.00-0.08) C-Reactive Protein 4.3mg/dL (0.0-0.5) Fibrinogen 230mg/dL (157-380) Prothrombin Time 11.1sec (8.1-12.5) Prothromb Time International Ratio 1.04ratio Activated Partial Thromboplast Time 35.7sec (22.8-33.0) Test 11/19/16 03:15 White Blood Count 9.3th/mm3 (3.8-10.1) Red Blood Count 2.77mil/mm3 (4.40-5.80) Hemoglobin 9.1g/dL (13.8-17.2) Hematocrit 29.0% (41.0-50.0) Mean Corpuscular Volume 104.7fL (81-100) Mean Corpuscular Hemoglobin 32.9pg (27.0-35.0) Mean Corpuscular Hemoglobin Concent 31.4% (32.0-37.0) Red Cell Distribution Width 13.8% (12.3-15.4) Platelet Count 275bil/L (150-400) Neutrophils (%) (Auto) 70% (40-74) Lymphocytes (%) (Auto) 9% (14-46) Monocytes (%) (Auto) 11% (4-12) Eosinophils (%) (Auto) 5% (0-5) Basophils (%) (Auto) 0% (0-3) Band Neutrophils % 5% (1-5) Metamyelocytes % 1% (0-0) Nucleated Red Blood Cells 2/100 WBC (0-24) Hematology Comments Sodium Level 138mEq/L (134-144) Potassium Level 5.2mEq/L (3.5-5.2) Chloride Level 107mEq/L (97-108) Carbon Dioxide Level 19mmol/L (18-29) Blood Urea Nitrogen 24mg/dL (8-27) Creatinine 1.78mg/dL (0.76-1.27) Estimat Glomerular Filtration Rate 40mL/min (>59) Glucose Level 179mg/dL (60-99) Calcium Level 8.3mg/dL (8.5-10.1) Total Bilirubin 0.4mg/dL (0.0-1.2) Aspartate Amino Transf (AST/SGOT) 31U/L (0-50) Alanine Aminotransferase (ALT/SGPT) 33U/L (0-44) Alkaline Phosphatase 90U/L (25-160) Total Protein 4.9g/dL (6.4-8.4) Albumin 2.9g/dL (3.4-5.0) Microbiology Results MRSA negative Urine Culture negative. Discharge Medications Discharge Medications Amoxicillin/Clav K 500-125 mg (Augmentin 500-125 mg) 1 Each Tablet 1 TABLET PO BID Prescribed by: Henrik MALDONADO Citalopram Hydrobromide (Celexa) 20 Mg Tablet 40 MG PO QPM (Reported) Dabigatran Etexilate Mesylate (Pradaxa) 150 Mg Capsule 150 MG PO BID Prescribed by: Henrik MALDONADO Glipizide ER (Glipizide ER) 5 Mg Tab.er.24 10 MG PO BIDWM (Reported) Insulin Glargine (Lantus U100 Insulin Vial) 100 Unit/Ml Vial 45 UNIT SUBQ MORNING (Reported) Insulin Glargine (Lantus U100 Insulin Vial) 100 Unit/Ml Vial 35 UNIT SUBQ QPM ( Reported) Levothyroxine (Levothyroxine) 50 Mcg Tablet 100 MCG PO DAILY (Reported) Lovastatin (Lovastatin) 40 Mg Tablet 40 MG PO BID (Reported) Metoprolol Tartrate (Metoprolol Tartrate) 25 Mg Tablet 25 MG PO BID Prescribed by: Henrik MALDONADO Niacinamide (Niacin) 500 Mg Tablet 1,000 MG PO MORNING (Reported) Niacinamide (Niacin) 500 Mg Tablet 1,500 MG PO HS (Reported) Tamsulosin (Flomax) 0.4 Mg Capsule 0.4 MG PO HS (Reported) Tamsulosin (Flomax) 0.4 Mg Capsule 0.8 MG PO DAILY Prescribed by: Henrik MALDONADO As needed Hydrocodone-Acetaminophen 5-325 mg (Hydrocodone-Acetaminophen 5-325 mg) 1 Each Tablet 1-2 TABLET PO q6hr PRN PRN For Pain Prescribed by: Henrik MALDONADO Additional med instructions I am sending you home with Pradaxa 150 mg tablets to take twice a day for three months. Then you need to take 75mg dose twice a day for a jail basis. You need to go to [email or web address] to register for the copay card for cheap refills. I am sending you home with Metoprolol Tartrate 25mg tablets to take twice a day. I am sending you home with Tamsulosin 0.8mg tablets to take daily. I am sending you home with Augmentin 500-125mg tablets to take twice a day for the next ten days. Take these until they are completed. Followup Plan Disposition: SNF Follow-up plan Follow up with your primary care provider in 1 week to discuss this admission. Discharge Diet: Diabetic, Renal Diet Discharge Activity: Limited until seen by PCP Patient Instructions You will be having physical therapy daily at [facility] for strength and conditioning. I encourage you to work with them in order for you to get your strength back quickly to get home. Follow up with your primary care provider in 1 week to discuss this hospital visit. Follow-up Provider: Willem Franklin MD Follow-up with PCP in: 1 week Time spent Greater than 30 minutes was spent in preparation of discharge with greater than 50% of that time dedicated to patient counseling and coordination of care. . Attending Statement The patient was seen and examined together with Dr. Christine on 11/19/2016 and I agree with the history, exam and plan as outlined in the note above. . copies to: Willem Franklin MD, Anthony P DO Nov 19, 2016 21:05 Abhay Jeff MD Nov 20, 2016 07:52
[2016-11-23] MEDS ORDERED: ACET325T51 PO (08:17)
== END 2016-11-19 18:06 | DRG 300 ==
LOC: EDBD 16:21 → SED 16:21 → MPC 17:51 → CCU 11-11 10:59 → PCC 11-12 15:00 → CCU 11-14 10:43 → PCC 11-16 09:48
PROVIDERS: ADMIT Internal Medicine; ATTEND Internal Medicine
PROC: 3E03317 Introduction of Other Thrombolytic into Peripheral Vein, Percutaneous Approach (ICD-10-PCS; principal; 2016-11-11)
PROC: 06HC33Z Insertion of Infusion Device into Right Common Iliac Vein, Percutaneous Approach (ICD-10-PCS; 2016-11-11)
PROC: 3E03317 Introduction of Other Thrombolytic into Peripheral Vein, Percutaneous Approach (ICD-10-PCS; 2016-11-14)
PROC: 06H033Z Insertion of Infusion Device into Inferior Vena Cava, Percutaneous Approach (ICD-10-PCS; 2016-11-14)
PROC: 3E03317 Introduction of Other Thrombolytic into Peripheral Vein, Percutaneous Approach (ICD-10-PCS; 2016-11-15)
PROC: 06H033Z Insertion of Infusion Device into Inferior Vena Cava, Percutaneous Approach (ICD-10-PCS; 2016-11-15)
DX: I82.411 Acute embolism and thrombosis of right femoral vein (principal); L03.115 Cellulitis of right lower limb; Z68.41 Body mass index [BMI] 40.0-44.9, adult; N17.9 Acute kidney failure, unspecified; I82.421 Acute embolism and thrombosis of right iliac vein; I82.4Z1 Acute embolism and thrombosis of unspecified deep veins of right distal lower extremity; E66.01 Morbid (severe) obesity due to excess calories; I12.9 Hypertensive chronic kidney disease with stage 1 through stage 4 chronic kidney disease, or unspecified chronic kidney disease; E11.22 Type 2 diabetes mellitus with diabetic chronic kidney disease; F32.9 Major depressive disorder, single episode, unspecified; F41.9 Anxiety disorder, unspecified; N40.0 Benign prostatic hyperplasia without lower urinary tract symptoms; Z86.711 Personal history of pulmonary embolism; Z86.718 Personal history of other venous thrombosis and embolism; N18.3 Chronic kidney disease, stage 3 (moderate)